=== PATIENT | female | born 1940 | race Hispanic/Latino ===

== ENCOUNTER 2017-09-04 19:28 | Inpatient (IN) | payer MEDICARE ==
[2017-09-04] MEDS ORDERED: Albuterol-Ipratrop 3 mg / 0.5 (3 ml) UD INH STA (22:55)
[2017-09-04 23:02] LABS: BASO % 0.5 % (0.0-2.0); EOS % 0.1 % (0.0-4.0); HEMOGLOBIN 14.6 g/dL (11.0-16.0); LYMPH # 0.3 K/uL (1.0-4.3); LYMPH % 3.8 % (20.0-40.0); MEAN CORPUSCULAR HEMOGLOBIN 32.5 pg (27.0-31.0); MEAN CORPUSCULAR HGB CONC 34.2 g/dL (33.0-37.0); MEAN PLATELET VOLUME 8.8 fL (7.2-11.7); MONO # 0.9 K/uL (0.0-0.8); MONO % 10.2 % (0.0-10.0); NEUT # 7.3 K/uL (1.8-7.0); NEUT % 85.4 % (50.0-75.0); PLATELET COUNT 184 K/uL (130-400); RBC 4.49 Mil/uL (3.80-5.20); RED CELL DISTRIBUTION WIDTH 13.3 % (11.5-14.5); WHITE BLOOD COUNT 8.5 K/uL (4.8-10.8)
[2017-09-04 23:12] LABS: ALB/GLOB RATIO 1.2 (1.0-2.1); ALBUMIN 4.1 g/dL (3.5-5.0); ALT/SGPT 23 U/L (9-52); AST/SGOT 18 U/L (14-36); BLOOD UREA NITROGEN 13 mg/dL (7-17); CALCIUM 8.7 mg/dl (8.6-10.4); GFR AFRICAN-AMERICAN > 60; GFR NON-AFRICAN AMERICAN > 60; MAGNESIUM 1.6 mg/dL (1.6-2.3)
[2017-09-04 23:16] LABS: INR 3.2
--- NOTE | 2017-09-04 23:20 | C.PDOC ---
History Of Present Illness 77 year old female presents to ED with complaints of flu-like symptoms x1 day and has a past medical history of asthma, hemicolectomy status post colon cancer , and PE status post IVC filter. (+) cough, fever, congestion, and malaise. Confirms receiving flu vaccination this flu season. Patient denies history of smoking. PCP: Non [facility] Time Seen by Provider: 09/04/17 22:03 Chief Complaint (Nursing): Chest Pain History Per: Patient History/Exam Limitations: no limitations Onset/Duration Of Symptoms: Days (X1) Current Symptoms Are (Timing): Still Present Past Medical History Reviewed: Historical Data, Nursing Documentation, Vital Signs Vital Signs: Last Vital Signs Temp 98.6 F 09/05/17 06:08 Pulse 53 L 09/05/17 06:08 Resp 17 09/05/17 06:08 BP 138/62 09/05/17 06:08 Pulse Ox 94 L 09/05/17 06:08 - Medical History PMH: Arthritis, Asthma, Back Problems ([id number]), Bronchitis, CHF, COPD , Diverticulitis (polyp removed), HTN, Pancreatitis (2007), Pneumonia, Pulmonary Embolism Denies: Atrial Fibrillation, Chronic Kidney Disease Family History: States: Unknown Family Hx - Social History Hx Tobacco Use: No Hx Alcohol Use: No Hx Substance Use: No - Immunization History Hx Tetanus Toxoid Vaccination: No Hx Influenza Vaccination: Yes Hx Pneumococcal Vaccination: No Review Of Systems Except As Marked, All Systems Reviewed And Found Negative. Constitutional: Positive for: Fever, Malaise ENT: Positive for: Nose Congestion Respiratory: Positive for: Cough Physical Exam - Physical Exam Appears: No Acute Distress Skin: Normal Color, Warm, Dry Eye(s): bilateral: Normal Inspection, PERRL, EOMI Neck: Normal Cardiovascular: Rhythm Regular, No Murmur Respiratory: No Normal Breath Sounds, Rhonchi (coarse rhonchi throughout lungs) , Other ((+) cough, productive of green sputum. Hypoxic at 93 RA) Back: Normal Inspection Extremity: Normal ROM, No Deformity Neurological/Psych: Oriented x3, Normal Speech ED Course And Treatment - Laboratory Results Result Diagrams: 09/04/17 22:57 09/04/17 22:57 O2 Sat by Pulse Oximetry: 93 (RA) Pulse Ox Interpretation: Abnormal Medical Decision Making Medical Decision Makin Initial orders: * PNA work up * Assess flu * Duonebs * XR * Labs 0005 Labs reviewed: Patient is flu A positive. White count: 8.5 INR: slightly therapeutic at 3.2 Gas: * pH 7.44 * CO2 34 * pO2 61 (hypoxic) * Sodium 131 (hyponatremic) Labs otherwise unremarkable. Rectal temp: 103 degrees. O2, fluids, and Tylenol ordered. 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 Dr. Kraig Ordonez [id number] Dr. Ordonez paged again. Scribe Attestation: Documented by Julieta Stockotn acting as a scribe for Pedro Chun MD. Scribe Attestation: All medical record entries made by the Scribe were at my direction and personally dictated by me. I have reviewed the chart and agree that the record accurately reflects my personal performance of the history, physical exam, medical decision making, and the department course for this patient. I have also personally directed, reviewed, and agree with the discharge instructions and disposition. Disposition Counseled Patient/Family Regarding: Diagnosis - Disposition Disposition: HOSPITALIZED Disposition Time: 07:09 Condition: FAIR - Clinical Impression Clinical Impression: Influenza A, COPD with exacerbation
[2017-09-04 23:21] LABS: PROTHROMBIN TIME 37.7 SECONDS (9.7-12.2)
[2017-09-04 23:21] LABS: SQUAMOUS EPITHIAL 1 /hpf (0-5); URINE BACTERIA RARE (<OCC); URINE BILIRUBIN NEGATIVE (NEGATIVE); URINE BLOOD 3+ (NEGATIVE); URINE CLARITY Clear (Clear); URINE COLOR Yellow (YELLOW); URINE GLUCOSE (UA) NORMAL (Normal); URINE LEUKOCYTE ESTERASE NEG Leu/uL (Negative); URINE NITRATE NEGATIVE (NEGATIVE); URINE PROTEIN 2+ mg/dL (NEGATIVE); URINE UROBILINOGEN NORMAL mg/dL (0.2-1.0)
[2017-09-04 23:24] LABS: B-TYPE NATRIURETIC PEPTIDE 611 pg/mL (0-900)
[2017-09-04 23:29] LABS: LYMPHOCYTE 1 % (20-40); MONOCYTE 4 % (0-10); NEUTROPHIL 95 % (50-75); PLATELET ESTIMATE NORMAL (NORMAL); TOTAL CELLS COUNTED 100
[2017-09-04] MEDS ORDERED: Albuterol-Ipratrop 3 mg / 0.5 (3 ml) UD ONE (23:29)
[2017-09-04 23:39] LABS: ABG ALLEN TEST POS; ARTERIAL BLOOD GAS HCO3 24.5 mmol/L (21-28); ARTERIAL BLOOD GAS HEMOGLOBIN 14.6 g/dL (11.7-17.4); ARTERIAL BLOOD GAS O2 SAT 94.1 % (95-98); ARTERIAL BLOOD GAS PCO2 34 mm/Hg (35-45); ARTERIAL BLOOD GAS PH 7.44 (7.35-7.45); ARTERIAL BLOOD GAS PO2 61 mm/Hg (80-100); ARTERIAL BLOOD GAS TCO2 24.1 mmol/L (22-28)
--- NOTE | 2017-09-05 08:41 | RAD ---
Chest x-ray two views History: Shortness breath. Comparison: None available. Findings: Biapical pleural thickening with upper lobe granulomatous changes. Diffuse increased interstitial lung markings. Heart size within normal limits. Degenerative changes in the spine. Impression: Biapical pleural thickening with upper lobe granulomatous changes. Diffuse increased interstitial lung markings.
[2017-09-05] MEDS ORDERED: Albuterol 0.083% Inhal Sol (2.5 mg/3 mL) UD IH PRN (16:29)
[2017-09-05] MEDS: Sodium Chloride 0.9% 1,000 ML IV SCH (16:50)
--- NOTE | 2017-09-05 16:52 | CP.PCM.HP ---
History of Present Illness - History of Present Illness History of Present Illness: HPI: Patient is a 77 year old female with a past medical history of asthma, Afib , HTN, DM, antiphospholipid syndrome, PE w/IVC filter, who presents with weakness, fevers, and coughing. Patient reports the coughing started on Monday and occasionally produces yellow sputum. Weakness in the legs and fever began yesterday, for which she called out of work sick. Patient was then brought into the ED by her daughter, Luly, who is at bedside. Patient took Tylenol, which helped her symptoms slightly. Patient currently complains of fever, chills, weakness, parasternal and midline back pain when coughing, Patient denies dizziness, shortness of breath, abdominal pain, nausea, vomiting, diarrhea, constipation, and dysuria. PMD: none Can Dryer: Dr. 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 absent: Dyspnea - Respiratory Respiratory: Cough, Wheezing, Change in Mucous Color (yellow), Pain with Coughing - Gastrointestinal Gastrointestinal: absent: Abdominal Pain, Constipation, Diarrhea, Nausea, Vomiting - Genitourinary Genitourinary: absent: Dysuria, Hematuria, Urinary Frequency - Musculoskeletal Musculoskeletal: Back Pain (right sided, with coughing) - Integumentary Integumentary: absent: Rash - Neurological Neurological: Headaches. absent: Dizziness Past Patient History - Past Medical History & Family History Past Medical History?: Yes - Past Social History Smoking Status: Never Smoked - CARDIAC Hx Atrial Fibrillation: No Hx Congestive Heart Failure: Yes Hx Hypertension: Yes - PULMONARY Hx Asthma: Yes Hx Bronchitis: Yes Hx Chronic Obstructive Pulmonary Disease (COPD): Yes Hx Pneumonia: Yes Hx Pulmonary Embolism: Yes - NEUROLOGICAL Hx Neurological Disorder: No Other/Comment: 1979 infection in the head - HEENT Hx HEENT Problems: Yes Hx Macular Degeneration: Yes Other/Comment: wear eyeglasses, sinus operation 1981 - RENAL Hx Chronic Kidney Disease: No - ENDOCRINE/METABOLIC Hx Endocrine Disorders: Yes Hx Diabetes Mellitus Type 2: Yes - HEMATOLOGICAL/ONCOLOGICAL Hx Blood Disorders: Yes - INTEGUMENTARY Hx Dermatological Problems: Yes Other/Comment: Dry skin elbow, on and off rash especially when feeling hot - MUSCULOSKELETAL/RHEUMATOLOGICAL Hx Arthritis: Yes - GASTROINTESTINAL Hx Diverticulitis: Yes (polyp removed) Hx Pancreatitis: Yes (2007) - GENITOURINARY/GYNECOLOGICAL Hx Genitourinary Disorders: Yes Hx Urinary Tract Infection: Yes - PSYCHIATRIC Hx Substance Use: No - SURGICAL HISTORY Hx Surgeries: Yes Hx Hysterectomy: Yes (1975,partial hysterectomy) Other/Comment: polyp removal ,vascular surgery 1983,1991 calcification remove of right breast,1993 bladder tuck,1994 operation left ft.,1999 knee surgery repair,2000hernia repair,2002 implant yenny cava filter,2004 surgery on rt. foot ,2006 vein stripping - ANESTHESIA Hx Anesthesia: Yes Hx Anesthesia Reactions: No Hx Malignant Hyperthermia: No Meds Allergies/Adverse Reactions: Allergies Allergy/AdvReac Type Severity Reaction Status Date / Time alatrofloxacin mesylate Allergy RASH Verified 09/05/17 11:27 [From Trovan] cefuroxime Allergy RASH Verified 09/05/17 11:27 lidocaine Allergy RASH Verified 09/05/17 11:27 linezolid [From Zyvox] Allergy RASH Verified 09/05/17 11:27 penicillin G Allergy RASH Verified 09/05/17 11:27 sulfamethoxazole Allergy RASH Verified 09/05/17 11:27 [From Bactrim] trimethoprim [From Bactrim] Allergy RASH Verified 09/05/17 11:27 trovafloxacin mesylate Allergy RASH Verified 09/05/17 11:27 [From Trovan] vancomycin Allergy RASH Verified 09/05/17 11:27 codeine AdvReac NAUSEA Verified 09/05/17 11:27 ofloxacin [From Floxin] AdvReac FATIGUE Verified 09/05/17 11:27 CT scan dye Allergy RASH Uncoded 10/21/15 01:48 ultravet Allergy DIZZINESS Uncoded 10/21/15 01:47 Physical Exam - Constitutional Appears: No Acute Distress - Head Exam Head Exam: ATRAUMATIC, NORMOCEPHALIC - Eye Exam Eye Exam: EOMI, Normal appearance, PERRL - ENT Exam ENT Exam: Mucous Membranes Moist - Respiratory Exam Respiratory Exam: Prolonged Expiratory Phase, Wheezes, NORMAL BREATHING PATTERN. absent: Clear to Auscultation Bilateral, Respiratory Distress - Cardiovascular Exam Cardiovascular Exam: Irregular Rhythm, +S1, +S2 - GI/Abdominal Exam GI & Abdominal Exam: Normal Bowel Sounds, Soft. absent: Distended, Firm, Tenderness - Extremities Exam Extremities exam: Negative for: normal inspection (variscosites; chronic skin changes 2/2 venous stasis), tenderness - Neurological Exam Neurological exam: Alert, Oriented x3 - Psychiatric Exam Psychiatric exam: Normal Affect, Normal Mood - Skin Skin Exam: Dry, Intact, Warm Results - Vital Signs Recent Vital Signs: Last Vital Signs Temp 99.6 F 09/05/17 16:32 Pulse 62 09/05/17 16:32 Resp 20 09/05/17 16:32 BP 147/66 09/05/17 16:32 Pulse Ox 97 09/05/17 16:32 - Labs Result Diagrams: 09/04/17 22:57 09/04/17 22:57 Labs: Laboratory Results - last 24 hr 09/04/17 09/04/17 09/04/17 22:54 22:57 22:57 WBC 8.5 RBC 4.49 Hgb 14.6 Hct 42.7 MCV 95.0 D MCH 32.5 H MCHC 34.2 RDW 13.3 Plt Count 184 MPV 8.8 Neut % (Auto) 85.4 H Lymph % (Auto) 3.8 L Winkler % (Auto) 10.2 H Eos % (Auto) 0.1 Baso % (Auto) 0.5 Neut # 7.3 H Lymph # 0.3 L Winkler # 0.9 H Eos # 0.0 Baso # 0.0 Neutrophils % (Manual) 95 H Lymphocytes % (Manual) 1 L Monocytes % (Manual) 4 Platelet Estimate Normal PT 37.7 H* INR 3.2 APTT 48 H Puncture Site pCO2 pO2 HCO3 ABG pH ABG Total CO2 ABG O2 Saturation ABG Base Excess ABG Hemoglobin ABG Carboxyhemoglobin POC ABG HHb (Measured) ABG Methemoglobin Rios Test Hgb O2 Saturation Sodium Potassium Chloride Carbon Dioxide Anion Gap BUN Creatinine Est GFR ( Amer) Est GFR (Non-Af Amer) POC Glucose (mg/dL) Random Glucose Calcium Magnesium Total Bilirubin AST ALT Alkaline Phosphatase Troponin I NT-Pro-B Natriuret Pep Total Protein Albumin Globulin Albumin/Globulin Ratio Urine Color Urine Clarity Urine pH Ur Specific Newell Urine Protein Urine Glucose (UA) Urine Ketones Urine Blood Urine Nitrate Urine Bilirubin Urine Urobilinogen Ur Leukocyte Esterase Urine WBC (Auto) Urine RBC (Auto) Ur Squamous Epith Cells Urine Bacteria Influenza Typ A,B (EIA) Pos for influenza a H 09/04/17 09/04/17 09/04/17 22:57 23:15 23:34 WBC RBC Hgb Hct MCV MCH MCHC RDW Plt Count MPV Neut % (Auto) Lymph % (Auto) Winkler % (Auto) Eos % (Auto) Baso % (Auto) Neut # Lymph # Winkler # Eos # Baso # Neutrophils % (Manual) Lymphocytes % (Manual) Monocytes % (Manual) Platelet Estimate PT INR APTT Puncture Site Rr pCO2 34 L pO2 61 L HCO3 24.5 ABG pH 7.44 ABG Total CO2 24.1 ABG O2 Saturation 94.1 L ABG Base Excess -0.4 ABG Hemoglobin 14.6 ABG Carboxyhemoglobin 1.0 POC ABG HHb (Measured) 5.8 H ABG Methemoglobin 0.9 Rios Test Pos Hgb O2 Saturation 92.3 L Sodium 131 L Potassium 3.6 Chloride 97 L Carbon Dioxide 26 Anion Gap 12 BUN 13 Creatinine 0.9 Est GFR ( Amer) > 60 Est GFR (Non-Af Amer) > 60 POC Glucose (mg/dL) Random Glucose 120 H Calcium 8.7 Magnesium 1.6 Total Bilirubin 0.6 AST 18 ALT 23 Alkaline Phosphatase 61 Troponin I 0.0180 NT-Pro-B Natriuret Pep 611 Total Protein 7.3 Albumin 4.1 Globulin 3.2 Albumin/Globulin Ratio 1.2 Urine Color Yellow Urine Clarity Clear Urine pH 5.0 Ur Specific Newell 1.020 Urine Protein 2+ H Urine Glucose (UA) Normal Urine Ketones Negative Urine Blood 3+ H Urine Nitrate Negative Urine Bilirubin Negative Urine Urobilinogen Normal Ur Leukocyte Esterase Neg Urine WBC (Auto) 1 Urine RBC (Auto) 24 H Ur Squamous Epith Cells 1 Urine Bacteria Rare Influenza Typ A,B (EIA) 09/05/17 16:33 WBC RBC Hgb Hct MCV MCH MCHC RDW Plt Count MPV Neut % (Auto) Lymph % (Auto) Winkler % (Auto) Eos % (Auto) Baso % (Auto) Neut # Lymph # Winkler # Eos # Baso # Neutrophils % (Manual) Lymphocytes % (Manual) Monocytes % (Manual) Platelet Estimate PT INR APTT Puncture Site pCO2 pO2 HCO3 ABG pH ABG Total CO2 ABG O2 Saturation ABG Base Excess ABG Hemoglobin ABG Carboxyhemoglobin POC ABG HHb (Measured) ABG Methemoglobin Rios Test Hgb O2 Saturation Sodium Potassium Chloride Carbon Dioxide Anion Gap BUN Creatinine Est GFR ( Amer) Est GFR (Non-Af Amer) POC Glucose (mg/dL) 136 H Random Glucose Calcium Magnesium Total Bilirubin AST ALT Alkaline Phosphatase Troponin I NT-Pro-B Natriuret Pep Total Protein Albumin Globulin Albumin/Globulin Ratio Urine Color Urine Clarity Urine pH Ur Specific Newell Urine Protein Urine Glucose (UA) Urine Ketones Urine Blood Urine Nitrate Urine Bilirubin Urine Urobilinogen Ur Leukocyte Esterase Urine WBC (Auto) Urine RBC (Auto) Ur Squamous Epith Cells Urine Bacteria Influenza Typ A,B (EIA) Assessment & Plan (1) Influenza A Assessment and Plan: Influenza A: positive * CXR: biapical pleural thickening w/upper lobar granulomatous changes; diffuse increased interstitial lung markings. * Pulmonology consulted, Dr. Ordonez recs appreciated (Patient sees as outpatient) * Medications: * Tamiflu 75mg PO BID for total of 5 days (started 09/05/17) * Duonebs Q6sch * O2 via nasal cannula prn * IV Fluids * Tylenol prn for fever * Droplet precautions Status: Acute (2) Asthma Assessment and Plan: History of asthma; Uses inhalers and duonebs at home prn. Patient sees Dr. Ordonez as outpatient. * CXR: biapical pleural thickening w/upper lobar granulomatous changes; diffuse increased interstitial lung markings. * Pulmonology consulted, Dr. Ordonez, recs appreciated (Patient sees as outpatient) * Duonebs Q6 rashaad * O2 via nasal cannula prn * Restart home medications Status: Acute (3) A-fib Assessment and Plan: History of A fib * EKG: nsr * Continue home medications- Cardizem 120mg PO daily * Rate controlled * Monitor on telemetry Status: Acute (4) HTN (hypertension) Assessment and Plan: Continue home medications Monitor vitals Status: Acute (5) Diabetes mellitus Assessment and Plan: Continue home medications ISS Hypoglycemia protocol Monitor blood glucose, Accuchecks Status: Chronic (6) Hx pulmonary embolism Assessment and Plan: Patient has a history of PE, DVT, and antiphospholipid syndrome. * Continue home medication- Coumadin 4mg PO HS (place order daily) * Monitor INR daily Status: Acute (7) Prophylactic measure Assessment and Plan: GI: pepcid 20mg po daily DVT: no SCDs; patient on Coumadin 4mg PO HS Heart healthy diet Droplet precautions Status: Acute
[2017-09-05] MEDS: diltiaZEM 120 mg/24 Hours CD Cap PO SCH (17:41)
[2017-09-05 19:08] LABS: INR 2.2; PROTHROMBIN TIME 25.9 SECONDS (9.7-12.2)
[2017-09-05] MEDS: (Novolin R) Insulin Human Regular 100 units/ml vial SC SCH (21:59)
--- NOTE | 2017-09-05 23:06 | CARD ---
APPROVED REPORT EKG Measurement Heart [id number] <Conclusion> Normal sinus rhythm Left anterior fascicular block Moderate voltage criteria for LVH, may be normal variant Abnormal ECG
[2017-09-06] MEDS: Albuterol-Ipratrop 3 mg / 0.5 (3 ml) UD INH SCH ×4 (00:01→21:21)
[2017-09-06] MEDS: Sodium Chloride 0.9% 1,000 ML IV SCH ×2 (05:32→22:56)
[2017-09-06] MEDS: Mometasone 220 mcg/puff-14 puff Inh INH SCH ×2 (07:18→21:20)
[2017-09-06] MEDS: (Novolin R) Insulin Human Regular 100 units/ml vial SC SCH ×4 (07:33→21:24)
--- NOTE | 2017-09-06 07:35 | CP.PCM.PN ---
<Estee Lang - Last Filed: 09/06/17 17:48> Subjective - Date & Time of Evaluation Date of Evaluation: 09/06/17 Time of Evaluation: 07:35 - Subjective Subjective: Medicine progress note for Dr. Johnson's service Patient was seen and examined at bedside in no acute distress. Patient was sitting having breakfast. Patient complains of cough productive of yellow sputum and chest/back pain with coughing. Patient denies chest pain, abdominal pain, nausea, fevers, and vomiting. Objective - Vital Signs/Intake and Output Vital Signs (last 24 hours): Temp Pulse Resp BP Pulse Ox 98.7 F 67 20 149/73 95 09/06/17 00:00 09/06/17 01:00 09/06/17 00:00 09/06/17 00:00 09/06/17 00:00 - Medications Medications: Current Medications Acetaminophen (Tylenol 325mg Tab) 650 mg PO Q6 PRN PRN Reason: Fever >100.4 F Last Admin: 09/06/17 06:40 Dose: 650 mg Albuterol Sulfate (Albuterol 0.083% Inhal Cristina (2.5 Mg/3 Ml) Ud) 2.5 mg IH RQ6 PRN PRN Reason: Shortness of Breath Albuterol/Ipratropium (Duoneb 3 Mg/0.5 Mg (3 Ml) Ud) 3 ml INH RQ6 RASHAAD Last Admin: 09/06/17 07:18 Dose: Not Given Calcium/Vitamin D (Oyster Shell Calcium/Vitamin D 500 Mg-200 Iu) 1 tab PO DAILY [facility] Diltiazem HCl (Cardizem Cd) 120 mg PO DAILY [facility] Last Admin: 09/05/17 17:41 Dose: Not Given Ergocalciferol (Drisdol 50,000 Intl Units Cap) 1 cap PO QWK [facility] Famotidine (Pepcid) 20 mg PO DAILY [facility] Glipizide (Glucotrol) 10 mg PO BID [facility] Last Admin: 09/05/17 17:43 Dose: 10 mg Sodium Chloride (Sodium Chloride 0.9%) 1,000 mls @ 75 mls/hr IV .[id number] [facility] Last Admin: 09/06/17 05:32 Dose: 75 mls/hr Insulin Human Regular (Novolin R) 0 unit SC ACHS RASHAAD PRN Reason: Protocol Last Admin: 09/06/17 07:33 Dose: Not Given Mometasone Furoate (Asmanex Twisthaler 220 Mcg) 2 puff INH RBID [facility] Last Admin: 09/06/17 07:18 Dose: Not Given Montelukast Sodium (Singulair) 10 mg PO HS [facility] Last Admin: 09/05/17 22:02 Dose: 10 mg Oseltamivir Phosphate (Tamiflu Cap) 75 mg PO BID [facility] Stop: 09/10/17 01:56 Last Admin: 09/05/17 17:43 Dose: 75 mg Pneumococcal Polyvalent Vaccine (Pneumovax 23 Vaccine) 0.5 ml IM .ONCE ONE Stop: 09/08/17 10:01 Sitagliptin Phosphate (Januvia) 100 mg PO DAILY [facility] [place] Last Admin: 09/05/17 17:44 Dose: Not Given - Labs Labs: 09/04/17 22:57 09/04/17 22:57 PT 25.9 SECONDS (9.7-12.2) H D 09/05/17 18:42 INR 2.2 D 09/05/17 18:42 APTT 43 SECONDS (21-34) H D 09/05/17 18:42 - Additional Findings Additional findings: - Constitutional Appears: No Acute Distress - Head Exam Head Exam: ATRAUMATIC, NORMOCEPHALIC - Eye Exam Eye Exam: EOMI, Normal appearance, PERRL - ENT Exam ENT Exam: Mucous Membranes Moist - Respiratory Exam Respiratory Exam: Prolonged Expiratory Phase, Wheezes, NORMAL BREATHING PATTERN , Productive cough (yellow sputum). absent: Clear to Auscultation Bilateral, Respiratory Distress - Cardiovascular Exam Cardiovascular Exam: Irregular Rhythm, +S1, +S2 - GI/Abdominal Exam GI & Abdominal Exam: Normal Bowel Sounds, Soft. absent: Distended, Firm, Tenderness - Extremities Exam Extremities exam: Negative for: normal inspection (variscosites; chronic skin changes 2/2 venous stasis), tenderness - Neurological Exam Neurological exam: Alert, Oriented x3 - Psychiatric Exam Psychiatric exam: Normal Affect, Normal Mood - Skin Skin Exam: Dry, Intact, Warm Assessment and Plan (1) Influenza A Status: Acute (2) Asthma Status: Acute (3) A-fib Status: Acute (4) HTN (hypertension) Status: Acute (5) Diabetes mellitus Status: Chronic (6) Hx pulmonary embolism Status: Acute (7) Prophylactic measure Status: Acute - Assessment and Plan (Free Text) Plan: Assessment & Plan (1) Influenza A Assessment and Plan: Influenza A: positive * CXR: biapical pleural thickening w/upper lobar granulomatous changes; diffuse increased interstitial lung markings. * Pulmonology consulted, lola Marshall appreciated (Patient sees as outpatient) * Medications: * Tamiflu 75mg PO BID for total of 5 days (started 09/05/17) * Duonebs Q6sch * O2 via nasal cannula prn * IV Fluids * Tylenol prn for fever * Droplet precautions * *Repeat chest xray: f/u results * Sputum cx: f/u results (2) Asthma Assessment and Plan: History of asthma; Uses inhalers and duonebs at home prn. Patient sees Dr. Ordonez as outpatient. * CXR: biapical pleural thickening w/upper lobar granulomatous changes; diffuse increased interstitial lung markings. * Pulmonology consulted, lola Marshall appreciated (Patient sees as outpatient) * Duonebs Q6 rashaad * O2 via nasal cannula prn * Restart home medications (3) A-fib Assessment and Plan: History of A fib * EKG: nsr * Continue home medications- Cardizem 120mg PO daily * Rate controlled * Monitor on telemetry (4) HTN (hypertension) Assessment and Plan: Continue home medications Monitor vitals (5) Diabetes mellitus Assessment and Plan: Continue home medications ISS Hypoglycemia protocol Monitor blood glucose, Accuchecks (6) Hx pulmonary embolism Assessment and Plan: Patient has a history of PE, DVT, and antiphospholipid syndrome. * Continue home medication- Coumadin 4mg PO HS (place order daily) * Monitor INR daily (7) Prophylactic measure Assessment and Plan: GI: pepcid 20mg po daily DVT: no SCDs; patient on Coumadin 4mg PO HS Heart healthy diet Droplet precautions <Harry Johnson Jr. - Last Filed: 09/07/17 19:31> Objective - Vital Signs/Intake and Output Vital Signs (last 24 hours): Temp Pulse Resp BP Pulse Ox 97.7 F 54 L 20 163/79 H 96 09/07/17 16:31 09/07/17 16:31 09/07/17 16:31 09/07/17 16:31 09/07/17 16:31 Intake and Output: 09/07/17 09/08/17 18:59 06:59 Intake Total 775 Balance 775 - Medications Medications: Current Medications Acetaminophen (Tylenol 325mg Tab) 650 mg PO Q6 PRN PRN Reason: Fever >100.4 F Last Admin: 09/07/17 14:11 Dose: 650 mg Albuterol Sulfate (Albuterol 0.083% Inhal Cristina (2.5 Mg/3 Ml) Ud) 2.5 mg IH RQ6 PRN PRN Reason: Shortness of Breath Albuterol/Ipratropium (Duoneb 3 Mg/0.5 Mg (3 Ml) Ud) 3 ml INH RQ6 RASHAAD Last Admin: 09/07/17 01:14 Dose: Not Given Calcium/Vitamin D (Oyster Shell Calcium/Vitamin D 500 Mg-200 Iu) 1 tab PO DAILY [facility] Last Admin: 09/07/17 10:22 Dose: 1 tab Diltiazem HCl (Cardizem Cd) 120 mg PO DAILY [facility] Last Admin: 09/07/17 10:22 Dose: 120 mg Ergocalciferol (Drisdol 50,000 Intl Units Cap) 1 cap PO QWK [facility] Last Admin: 09/06/17 10:05 Dose: 1 cap Famotidine (Pepcid) 20 mg PO DAILY [facility] Last Admin: 09/07/17 10:22 Dose: 20 mg Glipizide (Glucotrol) 10 mg PO BID [facility] Last Admin: 09/07/17 18:25 Dose: 10 mg Sodium Chloride (Sodium Chloride 0.9%) 1,000 mls @ 75 mls/hr IV .[id number] [facility] Last Admin: 09/07/17 08:30 Dose: Not Given Insulin Human Regular (Novolin R) 0 unit SC ACHS RASHAAD PRN Reason: Protocol Last Admin: 09/07/17 17:05 Dose: Not Given Mometasone Furoate (Asmanex Twisthaler 220 Mcg) 2 puff INH RBID [facility] Last Admin: 09/06/17 21:20 Dose: Not Given Montelukast Sodium (Singulair) 10 mg PO HS [facility] Last Admin: 09/06/17 21:40 Dose: 10 mg Oseltamivir Phosphate (Tamiflu Cap) 75 mg PO BID [facility] Stop: 09/10/17 01:56 Last Admin: 09/07/17 18:26 Dose: 75 mg Pneumococcal Polyvalent Vaccine (Pneumovax 23 Vaccine) 0.5 ml IM .ONCE ONE Stop: 09/08/17 10:01 Sitagliptin Phosphate (Januvia) 100 mg PO DAILY [facility] Last Admin: 09/07/17 10:30 Dose: Not Given - Labs Labs: 09/07/17 08:47 09/07/17 08:47 PT 21.5 SECONDS (9.7-12.2) H 09/07/17 08:47 INR 1.8 09/07/17 08:47 APTT 41 SECONDS (21-34) H 09/07/17 08:47 Attending/Attestation - Attestation I have personally seen and examined this patient.: Yes I have fully participated in the care of the patient.: Yes I have reviewed all pertinent clinical information, including history, physical exam and plan: Yes Notes (Text): 09/07/17 19:31 Agree with resident note and plan of care
[2017-09-06 08:23] LABS: INR 1.9; PROTHROMBIN TIME 22.4 SECONDS (9.7-12.2)
[2017-09-06 08:24] LABS: BASO % 0.8 % (0.0-2.0); EOS % 0.8 % (0.0-4.0); HEMOGLOBIN 13.3 g/dL (11.0-16.0); LYMPH # 0.9 K/uL (1.0-4.3); LYMPH % 27.5 % (20.0-40.0); MEAN CELL VOLUME 94.9 fL (81.0-99.0); MEAN CORPUSCULAR HEMOGLOBIN 32.5 pg (27.0-31.0); MEAN CORPUSCULAR HGB CONC 34.2 g/dL (33.0-37.0); MEAN PLATELET VOLUME 8.8 fL (7.2-11.7); MONO # 0.6 K/uL (0.0-0.8); MONO % 18.2 % (0.0-10.0); NEUT # 1.7 K/uL (1.8-7.0); NEUT % 52.7 % (50.0-75.0); NRBC % 0.3 % (0.0-2.0); RBC 4.11 Mil/uL (3.80-5.20); RED CELL DISTRIBUTION WIDTH 13.4 % (11.5-14.5); WHITE BLOOD COUNT 3.2 K/uL (4.8-10.8)
[2017-09-06 08:38] LABS: ALB/GLOB RATIO 1.2 (1.0-2.1); ALBUMIN 3.2 g/dL (3.5-5.0); ALT/SGPT 23 U/L (9-52); AST/SGOT 20 U/L (14-36); BLOOD UREA NITROGEN 14 mg/dL (7-17); CALCIUM 7.9 mg/dl (8.6-10.4); GFR AFRICAN-AMERICAN > 60; GFR NON-AFRICAN AMERICAN > 60
[2017-09-06] MEDS ORDERED: Ergocalciferol 50,000 Intl Units Cap PO SCH (10:00)
[2017-09-06] MEDS: diltiaZEM 120 mg/24 Hours CD Cap PO SCH (10:04)
[2017-09-06] MEDS: Calcium-Vit D 500 mg-200 Units Tab UD PO SCH (10:05)
[2017-09-07] MEDS: Albuterol-Ipratrop 3 mg / 0.5 (3 ml) UD INH SCH ×2 (01:14→20:45)
--- NOTE | 2017-09-07 06:57 | CP.PCM.PN ---
<Estee Lang - Last Filed: 09/07/17 18:17> Subjective - Date & Time of Evaluation Date of Evaluation: 09/07/17 Time of Evaluation: 06:55 - Subjective Subjective: Medicine progress note for Dr. Johnson's service Patient was seen and examined at bedside in no acute distress. Patient was sleeping. Patient still complains of cough productive of yellow sputum and chest /back pain with coughing. Patient also complains of soreness in her abdomen and legs. Patient denies chest pain, abdominal pain, nausea, fevers, and vomiting. Objective - Vital Signs/Intake and Output Vital Signs (last 24 hours): Temp Pulse Resp BP Pulse Ox 97.6 F 62 20 139/67 94 L 09/06/17 23:15 09/06/17 23:15 09/06/17 23:15 09/06/17 23:15 09/06/17 23:15 Intake and Output: 09/06/17 09/07/17 18:59 06:59 Intake Total 1500 600 Balance 1500 600 - Medications Medications: Current Medications Acetaminophen (Tylenol 325mg Tab) 650 mg PO Q6 PRN PRN Reason: Fever >100.4 F Last Admin: 09/06/17 18:37 Dose: 650 mg Albuterol Sulfate (Albuterol 0.083% Inhal Cristina (2.5 Mg/3 Ml) Ud) 2.5 mg IH RQ6 PRN PRN Reason: Shortness of Breath Albuterol/Ipratropium (Duoneb 3 Mg/0.5 Mg (3 Ml) Ud) 3 ml INH RQ6 [facility] Last Admin: 09/07/17 01:14 Dose: Not Given Calcium/Vitamin D (Oyster Shell Calcium/Vitamin D 500 Mg-200 Iu) 1 tab PO DAILY [facility] Last Admin: 09/06/17 10:05 Dose: 1 tab Diltiazem HCl (Cardizem Cd) 120 mg PO DAILY [facility] Last Admin: 09/06/17 10:04 Dose: 120 mg Ergocalciferol (Drisdol 50,000 Intl Units Cap) 1 cap PO QWK [facility] Last Admin: 09/06/17 10:05 Dose: 1 cap Famotidine (Pepcid) 20 mg PO DAILY [facility] Last Admin: 09/06/17 10:05 Dose: 20 mg Glipizide (Glucotrol) 10 mg PO BID [facility] Last Admin: 09/06/17 17:30 Dose: 10 mg Sodium Chloride (Sodium Chloride 0.9%) 1,000 mls @ 75 mls/hr IV .[id number] [facility] Last Admin: 09/06/17 22:56 Dose: 75 mls/hr Insulin Human Regular (Novolin R) 0 unit SC ACHS [facility] PRN Reason: Protocol Last Admin: 09/06/17 21:24 Dose: Not Given Mometasone Furoate (Asmanex Twisthaler 220 Mcg) 2 puff INH RBID [facility] Last Admin: 09/06/17 21:20 Dose: Not Given Montelukast Sodium (Singulair) 10 mg PO HS [facility] Last Admin: 09/06/17 21:40 Dose: 10 mg Oseltamivir Phosphate (Tamiflu Cap) 75 mg PO BID [facility] Stop: 09/10/17 01:56 Last Admin: 09/06/17 17:30 Dose: 75 mg Pneumococcal Polyvalent Vaccine (Pneumovax 23 Vaccine) 0.5 ml IM .ONCE ONE Stop: 09/08/17 10:01 Sitagliptin Phosphate (Januvia) 100 mg PO DAILY [facility] Last Admin: 09/06/17 10:06 Dose: Not Given - Labs Labs: 09/06/17 08:08 09/06/17 08:08 PT 22.4 SECONDS (9.7-12.2) H 09/06/17 08:08 INR 1.9 09/06/17 08:08 APTT 40 SECONDS (21-34) H 09/06/17 08:08 - Additional Findings Additional findings: - Constitutional Appears: No Acute Distress - Head Exam Head Exam: ATRAUMATIC, NORMOCEPHALIC - Eye Exam Eye Exam: EOMI, Normal appearance, PERRL - ENT Exam ENT Exam: Mucous Membranes Moist - Respiratory Exam Respiratory Exam: Prolonged Expiratory Phase, Wheezes, NORMAL BREATHING PATTERN , Productive cough (yellow sputum). absent: Clear to Auscultation Bilateral, Respiratory Distress - Cardiovascular Exam Cardiovascular Exam: Irregular Rhythm, +S1, +S2 - GI/Abdominal Exam GI & Abdominal Exam: Normal Bowel Sounds, Soft. absent: Distended, Firm, Tenderness - Extremities Exam Extremities exam: Negative for: normal inspection (variscosites; chronic skin changes 2/2 venous stasis), tenderness - Neurological Exam Neurological exam: Alert, Oriented x3 - Psychiatric Exam Psychiatric exam: Normal Affect, Normal Mood - Skin Skin Exam: Dry, Intact, Warm Assessment and Plan (1) Influenza A Status: Acute (2) Asthma Status: Acute (3) A-fib Status: Acute (4) HTN (hypertension) Status: Acute (5) Diabetes mellitus Status: Chronic (6) Hx pulmonary embolism Status: Acute (7) Prophylactic measure Status: Acute - Assessment and Plan (Free Text) Plan: Assessment & Plan (1) Influenza A Assessment and Plan: Influenza A: positive * CXR: biapical pleural thickening w/upper lobar granulomatous changes; diffuse increased interstitial lung markings. * Pulmonology consulted, Dr. Bucio, rec appreciated * Dr. Ordonez was consulted and called but never reached. (Patient sees as outpatient) * Medications: * Tamiflu 75mg PO BID for total of 5 days (started 09/05/17) * Duonebs Q6sch * O2 via nasal cannula prn * IV Fluids * Tylenol prn for fever * Droplet precautions * *Repeat chest xray (09/06): no focal infiltrate or effusion * Sputum cx: f/u results (2) Asthma Assessment and Plan: History of asthma; Uses inhalers and duonebs at home prn. Patient sees Dr. Ordonez as outpatient. * CXR: biapical pleural thickening w/upper lobar granulomatous changes; diffuse increased interstitial lung markings. * Pulmonology consulted, Dr. Bucio, recs appreciated * Dr. Ordonez was consulted and called but never reached. (Patient sees as outpatient) * Duonebs Q6 rashaad * O2 via nasal cannula prn * Restart home medications (3) A-fib Assessment and Plan: History of A fib * EKG: nsr * Continue home medications- Cardizem 120mg PO daily * Rate controlled * Monitor on telemetry (4) HTN (hypertension) Assessment and Plan: Continue home medications Monitor vitals (5) Diabetes mellitus Assessment and Plan: Continue home medications ISS Hypoglycemia protocol Monitor blood glucose, Accuchecks (6) Hx pulmonary embolism Assessment and Plan: Patient has a history of PE, DVT, and antiphospholipid syndrome. * Continue home medication- Coumadin 4mg PO HS (place order daily) * Monitor INR daily (7) Prophylactic measure Assessment and Plan: GI: pepcid 20mg po daily DVT: no SCDs; patient on Coumadin 4mg PO HS Heart healthy diet Droplet precautions Discussed with Dr. Johnson <Harry Johnson Jr. - Last Filed: 09/07/17 19:35> Objective - Vital Signs/Intake and Output Vital Signs (last 24 hours): Temp Pulse Resp BP Pulse Ox 97.7 F 54 L 20 163/79 H 96 09/07/17 16:31 09/07/17 16:31 09/07/17 16:31 09/07/17 16:31 09/07/17 16:31 Intake and Output: 09/07/17 09/08/17 18:59 06:59 Intake Total 775 Balance 775 - Medications Medications: Current Medications Acetaminophen (Tylenol 325mg Tab) 650 mg PO Q6 PRN PRN Reason: Fever >100.4 F Last Admin: 09/07/17 14:11 Dose: 650 mg Albuterol Sulfate (Albuterol 0.083% Inhal Cristina (2.5 Mg/3 Ml) Ud) 2.5 mg IH RQ6 PRN PRN Reason: Shortness of Breath Albuterol/Ipratropium (Duoneb 3 Mg/0.5 Mg (3 Ml) Ud) 3 ml INH RQ6 [facility] Last Admin: 09/07/17 01:14 Dose: Not Given Calcium/Vitamin D (Oyster Shell Calcium/Vitamin D 500 Mg-200 Iu) 1 tab PO DAILY [facility] Last Admin: 09/07/17 10:22 Dose: 1 tab Diltiazem HCl (Cardizem Cd) 120 mg PO DAILY [facility] Last Admin: 09/07/17 10:22 Dose: 120 mg Ergocalciferol (Drisdol 50,000 Intl Units Cap) 1 cap PO QWK [facility] Last Admin: 09/06/17 10:05 Dose: 1 cap Famotidine (Pepcid) 20 mg PO DAILY [facility] Last Admin: 09/07/17 10:22 Dose: 20 mg Glipizide (Glucotrol) 10 mg PO BID [facility] Last Admin: 09/07/17 18:25 Dose: 10 mg Sodium Chloride (Sodium Chloride 0.9%) 1,000 mls @ 75 mls/hr IV .[id number] [facility] Last Admin: 09/07/17 08:30 Dose: Not Given Insulin Human Regular (Novolin R) 0 unit SC ACHS [facility] PRN Reason: Protocol Last Admin: 09/07/17 17:05 Dose: Not Given Mometasone Furoate (Asmanex Twisthaler 220 Mcg) 2 puff INH RBID [facility] Last Admin: 09/06/17 21:20 Dose: Not Given Montelukast Sodium (Singulair) 10 mg PO HS [facility] Last Admin: 09/06/17 21:40 Dose: 10 mg Oseltamivir Phosphate (Tamiflu Cap) 75 mg PO BID [facility] Stop: 09/10/17 01:56 Last Admin: 09/07/17 18:26 Dose: 75 mg Pneumococcal Polyvalent Vaccine (Pneumovax 23 Vaccine) 0.5 ml IM .ONCE ONE Stop: 09/08/17 10:01 Sitagliptin Phosphate (Januvia) 100 mg PO DAILY [facility] Last Admin: 09/07/17 10:30 Dose: Not Given - Labs Labs: 09/07/17 08:47 09/07/17 08:47 PT 21.5 SECONDS (9.7-12.2) H 09/07/17 08:47 INR 1.8 09/07/17 08:47 APTT 41 SECONDS (21-34) H 09/07/17 08:47 Attending/Attestation - Attestation I have personally seen and examined this patient.: Yes I have fully participated in the care of the patient.: Yes I have reviewed all pertinent clinical information, including history, physical exam and plan: Yes Notes (Text): 09/07/17 19:35 Agree with resident note and plan of care
[2017-09-07] MEDS: (Novolin R) Insulin Human Regular 100 units/ml vial SC SCH ×4 (07:53→21:48)
[2017-09-07] MEDS: Sodium Chloride 0.9% 1,000 ML IV SCH ×2 (08:30→21:42)
[2017-09-07 08:55] LABS: BASO % 0.9 % (0.0-2.0); EOS # 0.1 K/uL (0.0-0.7); EOS % 2.3 % (0.0-4.0); HEMOGLOBIN 14.5 g/dL (11.0-16.0); LYMPH # 0.9 K/uL (1.0-4.3); MEAN CELL VOLUME 93.4 fL (81.0-99.0); MEAN CORPUSCULAR HEMOGLOBIN 33.2 pg (27.0-31.0); MEAN CORPUSCULAR HGB CONC 35.5 g/dL (33.0-37.0); MEAN PLATELET VOLUME 8.2 fL (7.2-11.7); MONO # 0.4 K/uL (0.0-0.8); MONO % 11.4 % (0.0-10.0); NEUT # 1.8 K/uL (1.8-7.0); NEUT % 57.4 % (50.0-75.0); RBC 4.37 Mil/uL (3.80-5.20); RED CELL DISTRIBUTION WIDTH 13.5 % (11.5-14.5); WHITE BLOOD COUNT 3.1 K/uL (4.8-10.8)
[2017-09-07 09:02] LABS: INR 1.8; PROTHROMBIN TIME 21.5 SECONDS (9.7-12.2)
--- NOTE | 2017-09-07 09:21 | RAD ---
Chest x-ray two views History: Productive cough. Comparison: 09/01/2007 Findings No focal infiltrate or effusion. Biapical pleural thickening with upper lobe granulomatous changes. Tortuous aorta. Degenerative changes in the spine and shoulders. Impression : No focal infiltrate or effusion.
[2017-09-07 09:23] LABS: ALB/GLOB RATIO 1.2 (1.0-2.1); ALBUMIN 3.6 g/dL (3.5-5.0); ALT/SGPT 27 U/L (9-52); AST/SGOT 21 U/L (14-36); BLOOD UREA NITROGEN 12 mg/dL (7-17); CALCIUM 8.1 mg/dl (8.6-10.4); GFR AFRICAN-AMERICAN > 60; GFR NON-AFRICAN AMERICAN > 60
[2017-09-07] MEDS: Calcium-Vit D 500 mg-200 Units Tab UD PO SCH (10:22)
[2017-09-07] MEDS: diltiaZEM 120 mg/24 Hours CD Cap PO SCH (10:22)
--- NOTE | 2017-09-07 17:51 | CP.PCM.CON ---
History of Present Illness - History of Present Illness History of Present Illness: The patient is a 77 year old female w/ medical history of hypertension, diabetes mellitus, atrial fibrillation, asthma, antiphospholipid syndrome, and pulmonary embolism with IVC filter who presented with complaints of fever, weakness, and cough beginning on Monday. She states that cough is productive and describes the sputum as yellow. On Monday, she states that she began feeling feverish and weak in the legs resulting in her calling out from work. The patient's daughter, Luly, brought her into the ED yesterday. She states that Tylenol has helped control her fever somewhat.On review of systems, the patient admits to fever, chills, fatigue, weakness, cough, and sputum production. She denies chest pain, palpitations, peripheral edema, shortness of beath, dyspnea, pleuritic chest pain, and hemoptysis. Social history: The patient denies smoking, alcohol, and illicit substance abuse. She currently resides in [place]. 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 Medical history: - Hypertension - Diabetes mellitus - Atrial fibrillation - Asthma - Antiphospholipid syndrome - Pulmonary embolism with IVC filter Allergies: - Alatrofloxacin mesylate - rash - Cefuroxime - rash - Lidocaine - rash - Linezolid - rash - Penicilin G - rash - sulfamethoxazole/trimethoprim (Bactrim) - rash - Vancomycin - rash - Codeine - nausea - Ofloxacin - fatigue - CT scan dye - rash - Ultravet - dizziness Surgical history: - Partial hysterectomy 1975 - Hemicolectomy - Polyp removal - Vascular surgery in 1983 - Removal of right breast 1991 - Bladder tuck 1993 - Left foot surgery 1994 - Knee repair surgery 1999 - Hernia repair 2000 - IVC filter placement 2003 - Right foot surgery 2005 - Vein stripping 2007 Hospitalizations: COPD exacerbation, Atrial fibrillation, all surgeries Family history: - CVA, ovarian/uterine cancer in mother - Valvular abnormality in sister Medications: - Albuterol 0.5% 3 mL inh prn - Mometasone 220 mcg 2 puff inh rbid - Montelukast 10 mg po hs - Glipizide 10 mg po bid - Diltiazem 120 mg po daily - Warfarin 4 mg po hs Vitals signs: Temperature: 97.6F Pulse: 62 bpm Blood pressure: 139/67 mm Hg Respiratory rate: 20 brpm Oxygen saturation: 94% on 2L O2 via nasal canula Physical examination: General: no apparent distress, normocephalic, atraumatic Cardiovascular: RRR, +s1, +s2, no murmurs/rubs/gallops Pulmonary: wheezing, no rales or rhonchi Labs: Microbiology: - Sputum culture negative Imaging: - CXR 09/04/2017: biapical pleural thickening with upper lobe granulomatous changes, diffuse increased interstitial lung markings - CXR 09/06/2017: no focal infiltrate or effusion Assessment & Plan Influenza A - Serology positive for Influenza A - Patient placed on droplet precautions - CXR 09/04/2017: biapical pleural thickening with upper lobe granulomatous changes, diffuse increased interstitial lung markings - CXR 09/06/2017: no focal infiltrate or effusion - Continue IV fluids, oxygen therapy, and tylenol for fever - Continue Tamiflu 75 mg po bid until 09/10/2017 - Be aware of patient's medication allergies if considering starting antibiotics for secondary bacterial infection anytime during hospital course Asthma - Patient uses Albuterol, Mometasone, and Montelukast at home - Continue oxygen therapy and Duonebs History of pulmonary embolism - Patient has antiphospholipid syndrome and a history of DVT/PE - Continue Warfarin 4 mg po hs - 09/06/2017: PT 22.4, INR 1.9, APTT 40 - Monitor coagulation studies Past Patient History - Past Medical History & Family History Past Medical History?: Yes - Past Social History Smoking Status: Never Smoked - CARDIAC Hx Congestive Heart Failure: Yes Hx Hypertension: Yes - PULMONARY Hx Chronic Obstructive Pulmonary Disease (COPD): Yes - NEUROLOGICAL Hx Neurological Disorder: No Other/Comment: 1979 infection in the head - HEENT Hx HEENT Problems: Yes Hx Macular Degeneration: Yes Other/Comment: wear eyeglasses, sinus operation 1981 - RENAL Hx Chronic Kidney Disease: No - ENDOCRINE/METABOLIC Hx Diabetes Mellitus Type 2: Yes - HEMATOLOGICAL/ONCOLOGICAL Hx Blood Disorders: Yes - INTEGUMENTARY Hx Dermatological Problems: Yes Other/Comment: Dry skin elbow, on and off rash especially when feeling hot - MUSCULOSKELETAL/RHEUMATOLOGICAL Hx Arthritis: Yes - GASTROINTESTINAL Hx Diverticulitis: Yes (polyp removed) Hx Pancreatitis: Yes (2007) - GENITOURINARY/GYNECOLOGICAL Hx Genitourinary Disorders: Yes Hx Urinary Tract Infection: Yes - PSYCHIATRIC Hx Substance Use: No - SURGICAL HISTORY Hx Surgeries: Yes Hx Hysterectomy: Yes (1975,partial hysterectomy) Other/Comment: polyp removal ,vascular surgery 1983,1991 calcification remove of right breast,1993 bladder tuck,1994 operation left ft.,1999 knee surgery repair,2000hernia repair,2002 implant yenny cava filter,2005 surgery on rt. foot ,2007 vein stripping - ANESTHESIA Hx Anesthesia: Yes Hx Anesthesia Reactions: No Hx Malignant Hyperthermia: No Meds Allergies/Adverse Reactions: Allergies Allergy/AdvReac Type Severity Reaction Status Date / Time alatrofloxacin mesylate Allergy RASH Verified 09/05/17 11:27 [From Trovan] cefuroxime Allergy RASH Verified 09/05/17 11:27 lidocaine Allergy RASH Verified 09/05/17 11:27 linezolid [From Zyvox] Allergy RASH Verified 09/05/17 11:27 penicillin G Allergy RASH Verified 09/05/17 11:27 sulfamethoxazole Allergy RASH Verified 09/05/17 11:27 [From Bactrim] trimethoprim [From Bactrim] Allergy RASH Verified 09/05/17 11:27 trovafloxacin mesylate Allergy RASH Verified 09/05/17 11:27 [From Trovan] vancomycin Allergy RASH Verified 09/05/17 11:27 codeine AdvReac NAUSEA Verified 09/05/17 11:27 ofloxacin [From Floxin] AdvReac FATIGUE Verified 09/05/17 11:27 CT scan dye Allergy RASH Uncoded 10/21/15 01:48 ultravet Allergy DIZZINESS Uncoded 10/21/15 01:47 - Medications Medications: Current Medications Acetaminophen (Tylenol 325mg Tab) 650 mg PO Q6 PRN PRN Reason: Fever >100.4 F Last Admin: 09/07/17 14:11 Dose: 650 mg Albuterol Sulfate (Albuterol 0.083% Inhal Cristina (2.5 Mg/3 Ml) Ud) 2.5 mg IH RQ6 PRN PRN Reason: Shortness of Breath Albuterol/Ipratropium (Duoneb 3 Mg/0.5 Mg (3 Ml) Ud) 3 ml INH RQ6 [facility] Last Admin: 09/07/17 01:14 Dose: Not Given Calcium/Vitamin D (Oyster Shell Calcium/Vitamin D 500 Mg-200 Iu) 1 tab PO DAILY [facility] Last Admin: 09/07/17 10:22 Dose: 1 tab Diltiazem HCl (Cardizem Cd) 120 mg PO DAILY [facility] Last Admin: 09/07/17 10:22 Dose: 120 mg Ergocalciferol (Drisdol 50,000 Intl Units Cap) 1 cap PO QWK [facility] Last Admin: 09/06/17 10:05 Dose: 1 cap Famotidine (Pepcid) 20 mg PO DAILY [facility] Last Admin: 09/07/17 10:22 Dose: 20 mg Glipizide (Glucotrol) 10 mg PO BID [facility] Last Admin: 09/07/17 10:22 Dose: 10 mg Sodium Chloride (Sodium Chloride 0.9%) 1,000 mls @ 75 mls/hr IV .[id number] [facility] Last Admin: 09/07/17 08:30 Dose: Not Given Insulin Human Regular (Novolin R) 0 unit SC ACHS [facility] PRN Reason: Protocol Last Admin: 09/07/17 17:05 Dose: Not Given Mometasone Furoate (Asmanex Twisthaler 220 Mcg) 2 puff INH RBID [facility] Last Admin: 09/06/17 21:20 Dose: Not Given Montelukast Sodium (Singulair) 10 mg PO HS [facility] Last Admin: 09/06/17 21:40 Dose: 10 mg Oseltamivir Phosphate (Tamiflu Cap) 75 mg PO BID [facility] Stop: 09/10/17 01:56 Last Admin: 09/07/17 10:22 Dose: 75 mg Pneumococcal Polyvalent Vaccine (Pneumovax 23 Vaccine) 0.5 ml IM .ONCE ONE Stop: 09/08/17 10:01 Sitagliptin Phosphate (Januvia) 100 mg PO DAILY [facility] Last Admin: 09/07/17 10:30 Dose: Not Given Warfarin Sodium (Coumadin) 4 mg PO 1800 [facility] Stop: 09/07/17 18:01 Results - Vital Signs Recent Vital Signs: Last Vital Signs Temp 97.7 F 09/07/17 16:31 Pulse 54 L 09/07/17 16:31 Resp 20 09/07/17 16:31 BP 163/79 H 09/07/17 16:31 Pulse Ox 96 09/07/17 16:31 - Labs Result Diagrams: 09/07/17 08:47 09/07/17 08:47 Labs: Laboratory Results - last 24 hr 09/06/17 09/07/17 09/07/17 21:00 06:30 08:47 WBC 3.1 L RBC 4.37 Hgb 14.5 Hct 40.8 MCV 93.4 MCH 33.2 H MCHC 35.5 RDW 13.5 Plt Count 149 MPV 8.2 Neut % (Auto) 57.4 Lymph % (Auto) 28.0 [place] % (Auto) 11.4 H Eos % (Auto) 2.3 Baso % (Auto) 0.9 Neut # 1.8 Lymph # 0.9 L [place] # 0.4 Eos # 0.1 Baso # 0.0 PT INR APTT Sodium Potassium Chloride Carbon Dioxide Anion Gap BUN Creatinine Est GFR ( Amer) Est GFR (Non-Af Amer) POC Glucose (mg/dL) 147 H 94 Random Glucose Calcium Total Bilirubin AST ALT Alkaline Phosphatase Total Protein Albumin Globulin Albumin/Globulin Ratio 09/07/17 09/07/17 09/07/17 08:47 08:47 11:14 WBC RBC Hgb Hct MCV MCH MCHC RDW Plt Count MPV Neut % (Auto) Lymph % (Auto) [place] % (Auto) Eos % (Auto) Baso % (Auto) Neut # Lymph # [place] # Eos # Baso # PT 21.5 H INR 1.8 APTT 41 H Sodium 136 Potassium 5.1 Chloride 99 Carbon Dioxide 32 H Anion Gap 9 L BUN 12 Creatinine 0.7 Est GFR ( Amer) > 60 Est GFR (Non-Af Amer) > 60 POC Glucose (mg/dL) 185 H Random Glucose 135 H Calcium 8.1 L Total Bilirubin 0.4 AST 21 ALT 27 Alkaline Phosphatase 53 Total Protein 6.4 Albumin 3.6 Globulin 2.9 Albumin/Globulin Ratio 1.2 09/07/17 16:36 WBC RBC Hgb Hct MCV MCH MCHC RDW Plt Count MPV Neut % (Auto) Lymph % (Auto) [place] % (Auto) Eos % (Auto) Baso % (Auto) Neut # Lymph # [place] # Eos # Baso # PT INR APTT Sodium Potassium Chloride Carbon Dioxide Anion Gap BUN Creatinine Est GFR ( Amer) Est GFR (Non-Af Amer) POC Glucose (mg/dL) 145 H Random Glucose Calcium Total Bilirubin AST ALT Alkaline Phosphatase Total Protein Albumin Globulin Albumin/Globulin Ratio
[2017-09-07] MEDS: Mometasone 220 mcg/puff-14 puff Inh INH SCH (20:45)
[2017-09-08] MEDS: Albuterol-Ipratrop 3 mg / 0.5 (3 ml) UD INH SCH ×4 (01:07→20:11)
--- NOTE | 2017-09-08 07:02 | CP.PCM.PN ---
Subjective - Date & Time of Evaluation Date of Evaluation: 09/08/17 Time of Evaluation: 07:02 - Subjective Subjective: Medicine progress note for Dr. Johnson's service Patient was seen and examined at bedside in no acute distress. Patient was sitting up having breakfast. Patient still complains of cough productive of yellow sputum and chest/back pain with coughing. Patient denies chest pain, abdominal pain, nausea, fevers, and vomiting. Objective - Vital Signs/Intake and Output Vital Signs (last 24 hours): Temp Pulse Resp BP Pulse Ox 97.9 F 59 L 20 168/73 H 97 09/08/17 00:08 09/08/17 00:08 09/08/17 00:08 09/08/17 00:08 09/08/17 00:08 Intake and Output: 09/08/17 09/08/17 06:59 18:59 Intake Total 400 Balance 400 - Medications Medications: Current Medications Acetaminophen (Tylenol 325mg Tab) 650 mg PO Q6 PRN PRN Reason: Fever >100.4 F Last Admin: 09/07/17 14:11 Dose: 650 mg Albuterol Sulfate (Albuterol 0.083% Inhal Cristina (2.5 Mg/3 Ml) Ud) 2.5 mg IH RQ6 PRN PRN Reason: Shortness of Breath Albuterol/Ipratropium (Duoneb 3 Mg/0.5 Mg (3 Ml) Ud) 3 ml INH RQ6 [facility] Last Admin: 09/08/17 01:07 Dose: Not Given Calcium/Vitamin D (Oyster Shell Calcium/Vitamin D 500 Mg-200 Iu) 1 tab PO DAILY [facility] Last Admin: 09/07/17 10:22 Dose: 1 tab Diltiazem HCl (Cardizem Cd) 120 mg PO DAILY [facility] Last Admin: 09/07/17 10:22 Dose: 120 mg Ergocalciferol (Drisdol 50,000 Intl Units Cap) 1 cap PO QWK [facility] Last Admin: 09/06/17 10:05 Dose: 1 cap Famotidine (Pepcid) 20 mg PO DAILY [facility] Last Admin: 09/07/17 10:22 Dose: 20 mg Glipizide (Glucotrol) 10 mg PO BID [facility] Last Admin: 09/07/17 18:25 Dose: 10 mg Sodium Chloride (Sodium Chloride 0.9%) 1,000 mls @ 75 mls/hr IV .[id number] [facility] Last Admin: 09/07/17 21:42 Dose: 75 mls/hr Insulin Human Regular (Novolin R) 0 unit SC ACHS [facility] PRN Reason: Protocol Last Admin: 09/07/17 21:48 Dose: Not Given Mometasone Furoate (Asmanex Twisthaler 220 Mcg) 2 puff INH RBID [facility] Last Admin: 09/07/17 20:45 Dose: Not Given Montelukast Sodium (Singulair) 10 mg PO HS [facility] Last Admin: 09/07/17 21:42 Dose: 10 mg Oseltamivir Phosphate (Tamiflu Cap) 75 mg PO BID [facility] Stop: 09/10/17 01:56 Last Admin: 09/07/17 18:26 Dose: 75 mg Pneumococcal Polyvalent Vaccine (Pneumovax 23 Vaccine) 0.5 ml IM .ONCE ONE Stop: 09/08/17 10:01 Sitagliptin Phosphate (Januvia) 100 mg PO DAILY [facility] Last Admin: 09/07/17 10:30 Dose: Not Given - Labs Labs: 09/07/17 08:47 09/07/17 08:47 PT 21.5 SECONDS (9.7-12.2) H 09/07/17 08:47 INR 1.8 09/07/17 08:47 APTT 41 SECONDS (21-34) H 09/07/17 08:47 - Additional Findings Additional findings: - Constitutional Appears: No Acute Distress - Head Exam Head Exam: ATRAUMATIC, NORMOCEPHALIC - Eye Exam Eye Exam: EOMI, Normal appearance, PERRL - ENT Exam ENT Exam: Mucous Membranes Moist - Respiratory Exam Respiratory Exam: Prolonged Expiratory Phase, Wheezes, NORMAL BREATHING PATTERN , Productive cough (yellow sputum). absent: Clear to Auscultation Bilateral, Respiratory Distress - Cardiovascular Exam Cardiovascular Exam: Irregular Rhythm, +S1, +S2 - GI/Abdominal Exam GI & Abdominal Exam: Normal Bowel Sounds, Soft. absent: Distended, Firm, Tenderness - Extremities Exam Extremities exam: Negative for: normal inspection (variscosites; chronic skin changes 2/2 venous stasis), tenderness - Neurological Exam Neurological exam: Alert, Oriented x3 - Psychiatric Exam Psychiatric exam: Normal Affect, Normal Mood - Skin Skin Exam: Dry, Intact, Warm Assessment and Plan (1) Influenza A Status: Acute (2) Asthma Status: Acute (3) A-fib Status: Acute (4) HTN (hypertension) Status: Acute (5) Diabetes mellitus Status: Chronic (6) Hx pulmonary embolism Status: Acute (7) Prophylactic measure Status: Acute - Assessment and Plan (Free Text) Plan: Assessment & Plan (1) Influenza A Assessment and Plan: Influenza A: positive * CXR: biapical pleural thickening w/upper lobar granulomatous changes; diffuse increased interstitial lung markings. * Pulmonology consulted, Dr. Bucio, rec appreciated * Dr. Ordonez was consulted and called but never reached. (Patient sees as outpatient) * Medications: * Tamiflu 75mg PO BID for total of 5 days (started 09/05/17) * Duonebs Q6sch * O2 via nasal cannula prn * IV Fluids * Phenergen 5ml PO prn * Reglan * Zofran 4mg IV Q6h * Tylenol prn for fever * Droplet precautions * Repeat chest xray (09/06): no focal infiltrate or effusion * Sputum cx: negative (2) Asthma Assessment and Plan: History of asthma; Uses inhalers and duonebs at home prn. Patient sees Dr. Ordonez as outpatient. * CXR: biapical pleural thickening w/upper lobar granulomatous changes; diffuse increased interstitial lung markings. * Pulmonology consulted, Dr. Bucio, recs appreciated * Dr. Ordonez was consulted and called but never reached. (Patient sees as outpatient) * Duonebs Q6 rashaad * O2 via nasal cannula prn * Restart home medications (3) A-fib Assessment and Plan: History of A fib * EKG: nsr * Continue home medications- Cardizem 120mg PO daily * Rate controlled * Monitor on telemetry (4) HTN (hypertension) Assessment and Plan: Continue home medications Monitor vitals (5) Diabetes mellitus Assessment and Plan: Continue home medications ISS Hypoglycemia protocol Monitor blood glucose, Accuchecks (6) Hx pulmonary embolism Assessment and Plan: Patient has a history of PE, DVT, and antiphospholipid syndrome. * Continue home medication- Coumadin 4mg PO HS (place order daily) * Monitor INR daily (7) Prophylactic measure Assessment and Plan: GI: pepcid 20mg po daily DVT: no SCDs; patient on Coumadin 4mg PO HS Heart healthy diet Droplet precautions Discussed with Dr. Johnson
[2017-09-08] MEDS: (Novolin R) Insulin Human Regular 100 units/ml vial SC SCH ×4 (07:58→22:53)
[2017-09-08 08:36] LABS: BASO # 0.1 K/uL (0.0-0.2); BASO % 2.5 % (0.0-2.0); EOS # 0.1 K/uL (0.0-0.7); EOS % 3.9 % (0.0-4.0); HEMOGLOBIN 14.3 g/dL (11.0-16.0); LYMPH # 0.9 K/uL (1.0-4.3); LYMPH % 30.3 % (20.0-40.0); MEAN CELL VOLUME 93.6 fL (81.0-99.0); MEAN CORPUSCULAR HEMOGLOBIN 32.9 pg (27.0-31.0); MEAN CORPUSCULAR HGB CONC 35.2 g/dL (33.0-37.0); MEAN PLATELET VOLUME 8.4 fL (7.2-11.7); MONO # 0.3 K/uL (0.0-0.8); MONO % 9.9 % (0.0-10.0); NEUT # 1.6 K/uL (1.8-7.0); NEUT % 53.4 % (50.0-75.0); NRBC % 0.1 % (0.0-2.0); RBC 4.33 Mil/uL (3.80-5.20); RED CELL DISTRIBUTION WIDTH 13.1 % (11.5-14.5)
[2017-09-08 08:41] LABS: INR 2.4; PROTHROMBIN TIME 28.5 SECONDS (9.7-12.2)
[2017-09-08 09:24] LABS: ALB/GLOB RATIO 1.2 (1.0-2.1); ALBUMIN 3.5 g/dL (3.5-5.0); ALT/SGPT 18 U/L (9-52); AST/SGOT 21 U/L (14-36); BLOOD UREA NITROGEN 13 mg/dL (7-17); CALCIUM 8.5 mg/dl (8.6-10.4); GFR AFRICAN-AMERICAN > 60; GFR NON-AFRICAN AMERICAN > 60
[2017-09-08] MEDS ORDERED: Pneumococcal 23-Valent Vaccine IM ONE (10:00)
[2017-09-08] MEDS: Calcium-Vit D 500 mg-200 Units Tab UD PO SCH (10:29)
[2017-09-08] MEDS: diltiaZEM 120 mg/24 Hours CD Cap PO SCH (10:29)
--- NOTE | 2017-09-08 11:19 | CP.PCM.PN ---
Subjective - Date & Time of Evaluation Date of Evaluation: 09/08/17 Time of Evaluation: 08:20 - Subjective Subjective: Patient seen and examined Still complaining of cough and dyspnea Afebrile Complaining of backache Objective - Vital Signs/Intake and Output Vital Signs (last 24 hours): Temp Pulse Resp BP Pulse Ox 97.6 F 60 20 141/77 97 09/08/17 08:00 09/08/17 08:00 09/08/17 08:00 09/08/17 08:00 09/08/17 08:00 Intake and Output: 09/08/17 09/08/17 06:59 18:59 Intake Total 400 600 Balance 400 600 - Medications Medications: Current Medications Acetaminophen (Tylenol 325mg Tab) 650 mg PO Q6 PRN PRN Reason: Fever >100.4 F Last Admin: 09/07/17 14:11 Dose: 650 mg Albuterol Sulfate (Albuterol 0.083% Inhal Cristina (2.5 Mg/3 Ml) Ud) 2.5 mg IH RQ6 PRN PRN Reason: Shortness of Breath Albuterol/Ipratropium (Duoneb 3 Mg/0.5 Mg (3 Ml) Ud) 3 ml INH RQ6 [facility] Last Admin: 09/08/17 07:40 Dose: 3 ml Calcium/Vitamin D (Oyster Shell Calcium/Vitamin D 500 Mg-200 Iu) 1 tab PO DAILY [facility] Last Admin: 09/08/17 10:29 Dose: 1 tab Diltiazem HCl (Cardizem Cd) 120 mg PO DAILY [facility] Last Admin: 09/08/17 10:29 Dose: 120 mg Ergocalciferol (Drisdol 50,000 Intl Units Cap) 1 cap PO QWK [facility] Last Admin: 09/06/17 10:05 Dose: 1 cap Famotidine (Pepcid) 20 mg PO DAILY [facility] Last Admin: 09/08/17 10:29 Dose: 20 mg Glipizide (Glucotrol) 10 mg PO BID [facility] Last Admin: 09/08/17 10:29 Dose: 10 mg Insulin Human Regular (Novolin R) 0 unit SC ACHS [facility] PRN Reason: Protocol Last Admin: 09/08/17 07:58 Dose: Not Given Mometasone Furoate (Asmanex Twisthaler 220 Mcg) 2 puff INH RBID [facility] Last Admin: 09/07/17 20:45 Dose: Not Given Montelukast Sodium (Singulair) 10 mg PO HS [facility] Last Admin: 09/07/17 21:42 Dose: 10 mg Oseltamivir Phosphate (Tamiflu Cap) 75 mg PO BID [facility] Stop: 09/10/17 01:56 Last Admin: 09/08/17 10:28 Dose: 75 mg Sitagliptin Phosphate (Januvia) 100 mg PO DAILY [facility] Last Admin: 09/08/17 10:32 Dose: Not Given - Labs Labs: 09/08/17 08:26 09/08/17 08:26 PT 28.5 SECONDS (9.7-12.2) H D 09/08/17 08:26 INR 2.4 D 09/08/17 08:26 APTT 43 SECONDS (21-34) H 09/08/17 08:26 - Head Exam Head Exam: ATRAUMATIC, NORMOCEPHALIC - Eye Exam Eye Exam: Normal appearance - ENT Exam ENT Exam: Mucous Membranes Moist - Respiratory Exam Respiratory Exam: Rhonchi - Cardiovascular Exam Cardiovascular Exam: REGULAR RHYTHM - GI/Abdominal Exam GI & Abdominal Exam: Soft, Normal Bowel Sounds Assessment and Plan (1) Asthma Assessment & Plan: continue nebulizer treatment and inhaled steroids Continue Tamiflu Status: Acute (2) Hx pulmonary embolism Status: Acute (3) Influenza A Status: Acute
[2017-09-08] MEDS: Mometasone 220 mcg/puff-14 puff Inh INH SCH ×2 (13:46→20:15)
[2017-09-08] MEDS ORDERED: Promethazine 12.5 mg/10 ml Syrup PO PRN (18:52)
[2017-09-08] MEDS: Promethazine DM 6.25 mg-15 mg/5 ml Syrup PO PRN (19:30)
[2017-09-09] MEDS: Albuterol-Ipratrop 3 mg / 0.5 (3 ml) UD INH SCH ×4 (02:05→19:53)
[2017-09-09] MEDS: (Novolin R) Insulin Human Regular 100 units/ml vial SC SCH ×4 (07:30→21:57)
--- NOTE | 2017-09-09 07:37 | CP.PCM.PN ---
Subjective - Date & Time of Evaluation Date of Evaluation: 09/09/17 Time of Evaluation: 07:35 - Subjective Subjective: PGY-[address] Johnson's service: Patient seen and examined at bedside. Nursing reports no acute events overnight. Patient found sitting comfortably at bedside. Patient reports decreased sputum production, and improved cough today. She reports being able to walk to the bathroom without difficulty, and is tolerating diet. Objective - Vital Signs/Intake and Output Vital Signs (last 24 hours): Temp Pulse Resp BP Pulse Ox 98.6 F 74 20 129/58 L 90 L 09/08/17 23:40 09/09/17 01:00 09/08/17 23:40 09/08/17 23:40 09/08/17 23:40 Intake and Output: 09/09/17 09/09/17 06:59 18:59 Intake Total 150 Balance 150 - Medications Medications: Current Medications Acetaminophen (Tylenol 325mg Tab) 650 mg PO Q6 PRN PRN Reason: Fever >100.4 F Last Admin: 09/08/17 14:11 Dose: 650 mg Albuterol Sulfate (Albuterol 0.083% Inhal Cristina (2.5 Mg/3 Ml) Ud) 2.5 mg IH RQ6 PRN PRN Reason: Shortness of Breath Albuterol/Ipratropium (Duoneb 3 Mg/0.5 Mg (3 Ml) Ud) 3 ml INH RQ6 [facility] Last Admin: 09/09/17 02:05 Dose: Not Given Calcium/Vitamin D (Oyster Shell Calcium/Vitamin D 500 Mg-200 Iu) 1 tab PO DAILY [facility] Last Admin: 09/08/17 10:29 Dose: 1 tab Diltiazem HCl (Cardizem Cd) 120 mg PO DAILY [facility] Last Admin: 09/08/17 10:29 Dose: 120 mg Ergocalciferol (Drisdol 50,000 Intl Units Cap) 1 cap PO QWK [facility] Last Admin: 09/06/17 10:05 Dose: 1 cap Famotidine (Pepcid) 20 mg PO DAILY [facility] Last Admin: 09/08/17 10:29 Dose: 20 mg Glipizide (Glucotrol) 10 mg PO BID [facility] Last Admin: 09/08/17 17:47 Dose: 10 mg Insulin Human Regular (Novolin R) 0 unit SC ACHS [facility] PRN Reason: Protocol Last Admin: 09/08/17 22:53 Dose: Not Given Metoclopramide HCl (Reglan) 10 mg PO ACHS [facility] Last Admin: 09/08/17 21:44 Dose: 10 mg Mometasone Furoate (Asmanex Twisthaler 220 Mcg) 2 puff INH RBID [facility] Last Admin: 09/08/17 20:15 Dose: 1 puff Montelukast Sodium (Singulair) 10 mg PO HS [facility] Last Admin: 09/08/17 21:44 Dose: 10 mg Ondansetron HCl (Zofran Inj) 4 mg IVP Q6H PRN PRN Reason: Nausea/Vomiting Last Admin: 09/08/17 19:30 Dose: 4 mg Oseltamivir Phosphate (Tamiflu Cap) 75 mg PO BID [facility] Stop: 09/10/17 01:56 Last Admin: 09/08/17 17:47 Dose: 75 mg Promethazine HCl/Dextromethorphan (Phenergan Dm Syrup) 5 ml PO Q6H PRN PRN Reason: Cough Last Admin: 09/08/17 19:30 Dose: 5 ml Sitagliptin Phosphate (Januvia) 100 mg PO DAILY [facility] Last Admin: 09/08/17 10:32 Dose: Not Given - Labs Labs: 09/08/17 08:26 09/08/17 08:26 PT 28.5 SECONDS (9.7-12.2) H D 09/08/17 08:26 INR 2.4 D 09/08/17 08:26 APTT 43 SECONDS (21-34) H 09/08/17 08:26 - Additional Findings Additional findings: - Constitutional Appears: No Acute Distress - Head Exam Head Exam: ATRAUMATIC, NORMOCEPHALIC - Eye Exam Eye Exam: EOMI, Normal appearance, PERRL - ENT Exam ENT Exam: Mucous Membranes Moist - Respiratory Exam Respiratory Exam: Prolonged Expiratory Phase, Wheezes, NORMAL BREATHING PATTERN , Productive cough (yellow sputum). absent: Clear to Auscultation Bilateral, Respiratory Distress - Cardiovascular Exam Cardiovascular Exam: Irregular Rhythm, +S1, +S2 - GI/Abdominal Exam GI & Abdominal Exam: Normal Bowel Sounds, Soft. absent: Distended, Firm, Tenderness - Extremities Exam Extremities exam: Negative for: normal inspection (variscosites; chronic skin changes 2/2 venous stasis), tenderness - Neurological Exam Neurological exam: Alert, Oriented x3 - Psychiatric Exam Psychiatric exam: Normal Affect, Normal Mood - Skin Skin Exam: Dry, Intact, Warm Assessment and Plan - Assessment and Plan (Free Text) Plan: (1) Influenza A Assessment and Plan: Influenza A: positive * CXR: biapical pleural thickening w/upper lobar granulomatous changes; diffuse increased interstitial lung markings. * Pulmonology consulted, Dr. Bucio, rec appreciated * Dr. Ordonez was consulted and called but never reached. (Patient sees as outpatient) * Medications: * Tamiflu 75mg PO BID for total of 5 days (started 09/05/17) * Duonebs Q6sch * O2 via nasal cannula prn * IV Fluids * Phenergen 5ml PO prn * Reglan * Zofran 4mg IV Q6h * Tylenol prn for fever * Droplet precautions * Repeat chest xray (09/06): no focal infiltrate or effusion * Sputum cx: negative (2) Asthma Assessment and Plan: History of asthma; Uses inhalers and duonebs at home prn. Patient sees Dr. Ordonez as outpatient. * CXR: biapical pleural thickening w/upper lobar granulomatous changes; diffuse increased interstitial lung markings. * Pulmonology consulted, Dr. Bucio, recs appreciated * Dr. Ordonez was consulted and called but never reached. (Patient sees as outpatient) * Duonebs Q6 rashaad * O2 via nasal cannula prn * Restart home medications (3) A-fib Assessment and Plan: History of A fib * EKG: nsr * Continue home medications- Cardizem 120mg PO daily * Rate controlled * Monitor on telemetry (4) HTN (hypertension) Assessment and Plan: Continue home medications Monitor vitals (5) Diabetes mellitus Assessment and Plan: Continue home medications ISS Hypoglycemia protocol Monitor blood glucose, Accuchecks (6) Hx pulmonary embolism Assessment and Plan: Patient has a history of PE, DVT, and antiphospholipid syndrome. * Continue home medication- Coumadin 4mg PO HS (place order daily) * Monitor INR daily (7) Prophylactic measure Assessment and Plan: GI: pepcid 20mg po daily DVT: no SCDs; patient on Coumadin 4mg PO HS Heart healthy diet Droplet precautions Discussed with Dr. Johnson
[2017-09-09] MEDS: Mometasone 220 mcg/puff-14 puff Inh INH SCH ×2 (07:38→19:53)
[2017-09-09 09:04] LABS: BASO % 0.2 % (0.0-2.0); EOS # 0.1 K/uL (0.0-0.7); EOS % 0.6 % (0.0-4.0); HEMOGLOBIN 13.8 g/dL (11.0-16.0); LYMPH # 1.1 K/uL (1.0-4.3); LYMPH % 11.8 % (20.0-40.0); MEAN CELL VOLUME 92.7 fL (81.0-99.0); MEAN CORPUSCULAR HGB CONC 35.6 g/dL (33.0-37.0); MEAN PLATELET VOLUME 8.6 fL (7.2-11.7); MONO # 0.6 K/uL (0.0-0.8); MONO % 6.2 % (0.0-10.0); NEUT # 7.8 K/uL (1.8-7.0); NEUT % 81.2 % (50.0-75.0); RBC 4.19 Mil/uL (3.80-5.20); RED CELL DISTRIBUTION WIDTH 13.2 % (11.5-14.5)
[2017-09-09 09:06] LABS: WHITE BLOOD COUNT 9.6 K/uL (4.8-10.8)
[2017-09-09 09:17] LABS: INR 3.2
[2017-09-09 09:28] LABS: ALB/GLOB RATIO 1.2 (1.0-2.1); ALBUMIN 3.6 g/dL (3.5-5.0); ALT/SGPT 25 U/L (9-52); AST/SGOT 20 U/L (14-36); BLOOD UREA NITROGEN 12 mg/dL (7-17); CALCIUM 8.8 mg/dl (8.6-10.4); GFR AFRICAN-AMERICAN > 60; GFR NON-AFRICAN AMERICAN > 60
[2017-09-09 09:32] LABS: PROTHROMBIN TIME 37.7 SECONDS (9.7-12.2)
[2017-09-09] MEDS: Calcium-Vit D 500 mg-200 Units Tab UD PO SCH (10:29)
[2017-09-09] MEDS: diltiaZEM 120 mg/24 Hours CD Cap PO SCH (10:29)
--- NOTE | 2017-09-09 15:16 | CP.PCM.PN ---
Objective - Vital Signs/Intake and Output Vital Signs (last 24 hours): Temp Pulse Resp BP Pulse Ox 98 F 75 20 115/64 93 L 09/09/17 08:00 09/09/17 13:58 09/09/17 08:00 09/09/17 08:00 09/09/17 08:00 Intake and Output: 09/09/17 09/09/17 06:59 18:59 Intake Total 150 Balance 150 - Medications Medications: Current Medications Acetaminophen (Tylenol 325mg Tab) 650 mg PO Q6 PRN PRN Reason: Fever >100.4 F Last Admin: 09/08/17 14:11 Dose: 650 mg Albuterol Sulfate (Albuterol 0.083% Inhal Cristina (2.5 Mg/3 Ml) Ud) 2.5 mg IH RQ6 PRN PRN Reason: Shortness of Breath Albuterol/Ipratropium (Duoneb 3 Mg/0.5 Mg (3 Ml) Ud) 3 ml INH RQ6 [facility] Last Admin: 09/09/17 13:59 Dose: 3 ml Calcium/Vitamin D (Oyster Shell Calcium/Vitamin D 500 Mg-200 Iu) 1 tab PO DAILY [facility] Last Admin: 09/09/17 10:29 Dose: 1 tab Diltiazem HCl (Cardizem Cd) 120 mg PO DAILY [facility] Last Admin: 09/09/17 10:29 Dose: 120 mg Ergocalciferol (Drisdol 50,000 Intl Units Cap) 1 cap PO QWK [facility] Last Admin: 09/06/17 10:05 Dose: 1 cap Famotidine (Pepcid) 20 mg PO DAILY [facility] Last Admin: 09/09/17 13:01 Dose: 20 mg Glipizide (Glucotrol) 10 mg PO BID [facility] Last Admin: 09/09/17 10:29 Dose: 10 mg Insulin Human Regular (Novolin R) 0 unit SC ACHS [facility] PRN Reason: Protocol Last Admin: 09/09/17 13:02 Dose: 2 unit Metoclopramide HCl (Reglan) 10 mg PO ACHS [facility] Last Admin: 09/09/17 13:01 Dose: 10 mg Mometasone Furoate (Asmanex Twisthaler 220 Mcg) 2 puff INH RBID [facility] Last Admin: 09/09/17 07:38 Dose: 2 puff Montelukast Sodium (Singulair) 10 mg PO HS [facility] Last Admin: 09/08/17 21:44 Dose: 10 mg Ondansetron HCl (Zofran Inj) 4 mg IVP Q6H PRN PRN Reason: Nausea/Vomiting Last Admin: 09/08/17 19:30 Dose: 4 mg Oseltamivir Phosphate (Tamiflu Cap) 75 mg PO BID [facility] Stop: 09/10/17 01:56 Last Admin: 09/09/17 10:29 Dose: 75 mg Promethazine HCl/Dextromethorphan (Phenergan Dm Syrup) 5 ml PO Q6H PRN PRN Reason: Cough Last Admin: 09/08/17 19:30 Dose: 5 ml Sitagliptin Phosphate (Januvia) 100 mg PO DAILY [facility] Last Admin: 09/09/17 10:31 Dose: Not Given Warfarin Sodium (Coumadin) 2 mg PO DAILY@1800 [facility] Stop: 09/09/17 18:01 - Labs Labs: 09/09/17 08:59 09/09/17 08:59 PT 37.7 SECONDS (9.7-12.2) H* D 09/09/17 08:59 INR 3.2 09/09/17 08:59 APTT 46 SECONDS (21-34) H 09/09/17 08:59 Assessment and Plan (1) Asthma Status: Acute (2) Hx pulmonary embolism Status: Acute (3) Influenza A Status: Acute
[2017-09-09] MEDS: Promethazine DM 6.25 mg-15 mg/5 ml Syrup PO PRN (16:35)
[2017-09-10 00:35] VITALS: RESP 20
[2017-09-10] MEDS: Albuterol-Ipratrop 3 mg / 0.5 (3 ml) UD INH SCH ×4 (02:02→21:15)
[2017-09-10] MEDS: (Novolin R) Insulin Human Regular 100 units/ml vial SC SCH ×4 (07:18→21:54)
[2017-09-10] MEDS: Mometasone 220 mcg/puff-14 puff Inh INH SCH ×2 (07:25→21:15)
--- NOTE | 2017-09-10 07:42 | CP.PCM.PN ---
Subjective - Date & Time of Evaluation Date of Evaluation: 09/10/17 Time of Evaluation: 07:42 - Subjective Subjective: PGY-[address] Johnson's service: Patient seen and examined at bedside. Nursing reports no acute events overnight. Patient found sitting comfortably at bedside. Patient states her cough, body aches are improved today. She denies difficulty urinating, moving bowels, and is tolerating diet. She is asking when she will go home. Objective - Vital Signs/Intake and Output Vital Signs (last 24 hours): Temp Pulse Resp BP Pulse Ox 98 F 88 20 128/66 96 09/10/17 00:30 09/10/17 00:30 09/10/17 00:30 09/10/17 00:30 09/10/17 00:30 Intake and Output: 09/10/17 09/10/17 06:59 18:59 Intake Total 480 Balance 480 - Medications Medications: Current Medications Acetaminophen (Tylenol 325mg Tab) 650 mg PO Q6 PRN PRN Reason: Fever >100.4 F Last Admin: 09/09/17 16:35 Dose: 650 mg Albuterol Sulfate (Albuterol 0.083% Inhal Cristina (2.5 Mg/3 Ml) Ud) 2.5 mg IH RQ6 PRN PRN Reason: Shortness of Breath Albuterol/Ipratropium (Duoneb 3 Mg/0.5 Mg (3 Ml) Ud) 3 ml INH RQ6 [facility] Last Admin: 09/10/17 07:25 Dose: 3 ml Calcium/Vitamin D (Oyster Shell Calcium/Vitamin D 500 Mg-200 Iu) 1 tab PO DAILY [facility] Last Admin: 09/09/17 10:29 Dose: 1 tab Diltiazem HCl (Cardizem Cd) 120 mg PO DAILY [facility] Last Admin: 09/09/17 10:29 Dose: 120 mg Ergocalciferol (Drisdol 50,000 Intl Units Cap) 1 cap PO QWK [facility] Last Admin: 09/06/17 10:05 Dose: 1 cap Famotidine (Pepcid) 20 mg PO DAILY [facility] Last Admin: 09/09/17 13:01 Dose: 20 mg Glipizide (Glucotrol) 10 mg PO BID [facility] Last Admin: 09/09/17 17:51 Dose: 10 mg Insulin Human Regular (Novolin R) 0 unit SC ACHS [facility] PRN Reason: Protocol Last Admin: 09/10/17 07:18 Dose: Not Given Metoclopramide HCl (Reglan) 10 mg PO ACHS [facility] Last Admin: 09/10/17 06:34 Dose: 10 mg Mometasone Furoate (Asmanex Twisthaler 220 Mcg) 2 puff INH RBID [facility] Last Admin: 09/10/17 07:25 Dose: 2 puff Montelukast Sodium (Singulair) 10 mg PO HS [facility] Last Admin: 09/09/17 21:27 Dose: 10 mg Ondansetron HCl (Zofran Inj) 4 mg IVP Q6H PRN PRN Reason: Nausea/Vomiting Last Admin: 09/08/17 19:30 Dose: 4 mg Promethazine HCl/Dextromethorphan (Phenergan Dm Syrup) 5 ml PO Q6H PRN PRN Reason: Cough Last Admin: 09/09/17 16:35 Dose: 5 ml Sitagliptin Phosphate (Januvia) 100 mg PO DAILY [facility] Last Admin: 09/09/17 10:31 Dose: Not Given - Labs Labs: 09/09/17 08:59 09/09/17 08:59 PT 37.7 SECONDS (9.7-12.2) H* D 09/09/17 08:59 INR 3.2 09/09/17 08:59 APTT 46 SECONDS (21-34) H 09/09/17 08:59 - Additional Findings Additional findings: - Constitutional Appears: No Acute Distress - Head Exam Head Exam: ATRAUMATIC, NORMOCEPHALIC - Eye Exam Eye Exam: EOMI, Normal appearance, PERRL - ENT Exam ENT Exam: Mucous Membranes Moist - Respiratory Exam Respiratory Exam: Prolonged Expiratory Phase NORMAL BREATHING PATTERN, Productive cough (yellow sputum). absent: Clear to Auscultation Bilateral, Respiratory Distress - Cardiovascular Exam Cardiovascular Exam: Irregular Rhythm, +S1, +S2 - GI/Abdominal Exam GI & Abdominal Exam: Normal Bowel Sounds, Soft. absent: Distended, Firm, Tenderness - Extremities Exam Extremities exam: Negative for: normal inspection (variscosites; chronic skin changes 2/2 venous stasis), tenderness - Neurological Exam Neurological exam: Alert, Oriented x3 - Psychiatric Exam Psychiatric exam: Normal Affect, Normal Mood - Skin Skin Exam: Dry, Intact, Warm Assessment and Plan - Assessment and Plan (Free Text) Plan: (1) Influenza A Assessment and Plan: Influenza A: positive * CXR: biapical pleural thickening w/upper lobar granulomatous changes; diffuse increased interstitial lung markings. * Pulmonology consulted, Dr. Bucio, rec appreciated * Dr. Ordonez was consulted and called but never reached. (Patient sees as outpatient) * Medications: * Tamiflu 75mg PO BID for total of 5 days (started 09/05/17, ends 09/10) * Duonebs Q6sch * O2 via nasal cannula prn * IV Fluids * Phenergen 5ml PO prn * Reglan * Zofran 4mg IV Q6h * Tylenol prn for fever * Droplet precautions * Repeat chest xray (09/06): no focal infiltrate or effusion * Sputum cx: negative (2) Asthma Assessment and Plan: History of asthma; Uses inhalers and duonebs at home prn. Patient sees Dr. Ordonez as outpatient. * CXR: biapical pleural thickening w/upper lobar granulomatous changes; diffuse increased interstitial lung markings. * Pulmonology consulted, Dr. Bucio, recs appreciated * Dr. Ordonez was consulted and called but never reached. (Patient sees as outpatient) * Duonebs Q6 rashaad * O2 via nasal cannula prn * Restart home medications (3) A-fib Assessment and Plan: History of A fib * EKG: nsr * Continue home medications- Cardizem 120mg PO daily * Rate controlled * Monitor on telemetry Coumadin: 2mg for tonight, INR 2.9 (4) HTN (hypertension) Assessment and Plan: Continue home medications Monitor vitals (5) Diabetes mellitus Assessment and Plan: Continue home medications ISS Hypoglycemia protocol Monitor blood glucose, Accuchecks (6) Hx pulmonary embolism Assessment and Plan: Patient has a history of PE, DVT, and antiphospholipid syndrome. * Continue home medication- Coumadin 4mg PO HS (place order daily) * Monitor INR daily (7) Prophylactic measure Assessment and Plan: GI: pepcid 20mg po daily DVT: no SCDs; patient on Coumadin 2mg PO HS Heart healthy diet Droplet precautions Disposition: DC planning for tomorrow Discussed with Dr. Johnson
[2017-09-10 08:04] LABS: BASO % 0.5 % (0.0-2.0); EOS # 0.1 K/uL (0.0-0.7); EOS % 1.3 % (0.0-4.0); HEMOGLOBIN 14.1 g/dL (11.0-16.0); LYMPH # 1.5 K/uL (1.0-4.3); LYMPH % 16.6 % (20.0-40.0); MEAN CELL VOLUME 93.9 fL (81.0-99.0); MEAN CORPUSCULAR HEMOGLOBIN 32.3 pg (27.0-31.0); MEAN CORPUSCULAR HGB CONC 34.4 g/dL (33.0-37.0); MEAN PLATELET VOLUME 8.3 fL (7.2-11.7); MONO # 0.6 K/uL (0.0-0.8); MONO % 6.7 % (0.0-10.0); NEUT # 6.7 K/uL (1.8-7.0); NEUT % 74.9 % (50.0-75.0); RBC 4.37 Mil/uL (3.80-5.20); WHITE BLOOD COUNT 8.9 K/uL (4.8-10.8)
[2017-09-10 08:10] LABS: INR 2.9
[2017-09-10 08:36] LABS: ALB/GLOB RATIO 1.2 (1.0-2.1); ALBUMIN 3.9 g/dL (3.5-5.0); ALT/SGPT 18 U/L (9-52); AST/SGOT 22 U/L (14-36); BLOOD UREA NITROGEN 16 mg/dL (7-17); CALCIUM 8.7 mg/dl (8.6-10.4); GFR AFRICAN-AMERICAN > 60; GFR NON-AFRICAN AMERICAN > 60
[2017-09-10] MEDS: diltiaZEM 120 mg/24 Hours CD Cap PO SCH (09:17)
[2017-09-10] MEDS: Calcium-Vit D 500 mg-200 Units Tab UD PO SCH (09:17)
[2017-09-10 14:36] LABS: PROTHROMBIN TIME 34.4 SECONDS (9.7-12.2)
[2017-09-10] MEDS: Promethazine DM 6.25 mg-15 mg/5 ml Syrup PO PRN (21:09)
[2017-09-11] MEDS: (Novolin R) Insulin Human Regular 100 units/ml vial SC SCH ×3 (08:10→16:31)
[2017-09-11 08:16] LABS: BASO % 0.3 % (0.0-2.0); EOS # 0.1 K/uL (0.0-0.7); EOS % 1.5 % (0.0-4.0); HEMOGLOBIN 14.4 g/dL (11.0-16.0); LYMPH # 1.4 K/uL (1.0-4.3); LYMPH % 17.7 % (20.0-40.0); MEAN CELL VOLUME 93.3 fL (81.0-99.0); MEAN CORPUSCULAR HEMOGLOBIN 32.4 pg (27.0-31.0); MEAN CORPUSCULAR HGB CONC 34.7 g/dL (33.0-37.0); MEAN PLATELET VOLUME 8.6 fL (7.2-11.7); MONO # 0.6 K/uL (0.0-0.8); MONO % 7.3 % (0.0-10.0); NEUT # 5.7 K/uL (1.8-7.0); NEUT % 73.2 % (50.0-75.0); NRBC % 0.1 % (0.0-2.0); RBC 4.43 Mil/uL (3.80-5.20); WHITE BLOOD COUNT 7.8 K/uL (4.8-10.8)
[2017-09-11 08:22] LABS: INR 2.9; PROTHROMBIN TIME 34.7 SECONDS (9.7-12.2)
[2017-09-11 08:59] LABS: ALB/GLOB RATIO 1.2 (1.0-2.1); ALBUMIN 3.9 g/dL (3.5-5.0); ALT/SGPT 30 U/L (9-52); AST/SGOT 19 U/L (14-36); BLOOD UREA NITROGEN 19 mg/dL (7-17); CALCIUM 8.9 mg/dl (8.6-10.4); GFR AFRICAN-AMERICAN > 60; GFR NON-AFRICAN AMERICAN > 60
[2017-09-11] MEDS: Mometasone 220 mcg/puff-14 puff Inh INH SCH (09:27)
[2017-09-11] MEDS: Calcium-Vit D 500 mg-200 Units Tab UD PO SCH (10:14)
[2017-09-11] MEDS: diltiaZEM 120 mg/24 Hours CD Cap PO SCH (10:25)
--- NOTE | 2017-09-11 12:49 | CP.PCM.DIS ---
Provider - Provider Date of Admission: 09/05/17 03:28 Attending physician: Harry Johnson Jr, MD Consults: Pulmonology- Dr. Bucio Time Spent in preparation of Discharge (in minutes): 45 Diagnosis - Discharge Diagnosis (1) Influenza A Status: Acute (2) Asthma Status: Acute (3) A-fib Status: Acute (4) HTN (hypertension) Status: Acute (5) Diabetes mellitus Status: Chronic (6) Hx pulmonary embolism Status: Acute (7) Prophylactic measure Status: Acute Hospital Course - Lab Results Lab Results: Micro Results 09/06/17 Unknown Sputum Gram Stain - Final 09/06/17 Unknown Sputum Sputum Culture - Final NORMAL ORAL FREIDA Most Recent Lab Values WBC 7.8 K/uL (4.8-10.8) 09/11/17 08:05 RBC 4.43 Mil/uL (3.80-5.20) 09/11/17 08:05 Hgb 14.4 g/dL (11.0-16.0) 09/11/17 08:05 Hct 41.4 % (34.0-47.0) 09/11/17 08:05 MCV 93.3 fL (81.0-99.0) 09/11/17 08:05 MCH 32.4 pg (27.0-31.0) H 09/11/17 08:05 MCHC 34.7 g/dL (33.0-37.0) 09/11/17 08:05 RDW 13.0 % (11.5-14.5) 09/11/17 08:05 Plt Count 191 K/uL (130-400) 09/11/17 08:05 MPV 8.6 fL (7.2-11.7) 09/11/17 08:05 Neut % (Auto) 73.2 % (50.0-75.0) 09/11/17 08:05 Lymph % (Auto) 17.7 % (20.0-40.0) L 09/11/17 08:05 [place] % (Auto) 7.3 % (0.0-10.0) 09/11/17 08:05 Eos % (Auto) 1.5 % (0.0-4.0) 09/11/17 08:05 Baso % (Auto) 0.3 % (0.0-2.0) 09/11/17 08:05 Neut # 5.7 K/uL (1.8-7.0) 09/11/17 08:05 Lymph # 1.4 K/uL (1.0-4.3) 09/11/17 08:05 [place] # 0.6 K/uL (0.0-0.8) 09/11/17 08:05 Eos # 0.1 K/uL (0.0-0.7) 09/11/17 08:05 Baso # 0.0 K/uL (0.0-0.2) 09/11/17 08:05 Neutrophils % (Manual) 95 % (50-75) H 09/04/17 22:57 Lymphocytes % (Manual) 1 % (20-40) L 09/04/17 22:57 Monocytes % (Manual) 4 % (0-10) 09/04/17 22:57 Platelet Estimate Normal (NORMAL) 09/04/17 22:57 PT 34.7 SECONDS (9.7-12.2) H* 09/11/17 08:05 INR 2.9 09/11/17 08:05 APTT 47 SECONDS (21-34) H D 09/11/17 08:05 Puncture Site Rr 09/04/17 23:34 pCO2 34 mm/Hg (35-45) L 09/04/17 23:34 pO2 61 mm/Hg (80-100) L 09/04/17 23:34 HCO3 24.5 mmol/L (21-28) 09/04/17 23:34 ABG pH 7.44 (7.35-7.45) 09/04/17 23:34 ABG Total CO2 24.1 mmol/L (22-28) 09/04/17 23:34 ABG O2 Saturation 94.1 % (95-98) L 09/04/17 23:34 ABG Base Excess -0.4 mmol/L (-2.0-3.0) 09/04/17 23:34 ABG Hemoglobin 14.6 g/dL (11.7-17.4) 09/04/17 23:34 ABG Carboxyhemoglobin 1.0 % (0.5-1.5) 09/04/17 23:34 POC ABG HHb (Measured) 5.8 % (0.0-5.0) H 09/04/17 23:34 ABG Methemoglobin 0.9 % (0.0-3.0) 09/04/17 23:34 Rios Test Pos 09/04/17 23:34 Hgb O2 Saturation 92.3 % (95.0-98.0) L 09/04/17 23:34 Sodium 136 mmol/L (132-148) 09/11/17 08:05 Potassium 4.8 mmol/L (3.6-5.2) 09/11/17 08:05 Chloride 99 mmol/L (98-107) 09/11/17 08:05 Carbon Dioxide 29 mmol/L (22-30) 09/11/17 08:05 Anion Gap 13 (10-20) 09/11/17 08:05 BUN 19 mg/dL (7-17) H 09/11/17 08:05 Creatinine 0.8 mg/dL (0.7-1.2) 09/11/17 08:05 Est GFR ( Amer) > 60 09/11/17 08:05 Est GFR (Non-Af Amer) > 60 09/11/17 08:05 POC Glucose (mg/dL) 206 mg/dL (65-110) H 09/11/17 11:45 Random Glucose 127 mg/dL (65-105) H 09/11/17 08:05 Calcium 8.9 mg/dl (8.6-10.4) 09/11/17 08:05 Phosphorus 3.4 mg/dL (2.5-4.5) 09/11/17 08:05 Magnesium 2.0 mg/dL (1.6-2.3) 09/11/17 08:05 Total Bilirubin 0.8 mg/dL (0.2-1.3) 09/11/17 08:05 AST 19 U/L (14-36) 09/11/17 08:05 ALT 30 U/L (9-52) 09/11/17 08:05 Alkaline Phosphatase 62 U/L (38-126) 09/11/17 08:05 Troponin I 0.0180 ng/mL (0.00-0.120) 09/04/17 22:57 NT-Pro-B Natriuret Pep 611 pg/mL (0-900) 09/04/17 22:57 Total Protein 7.3 g/dL (6.3-8.3) 09/11/17 08:05 Albumin 3.9 g/dL (3.5-5.0) 09/11/17 08:05 Globulin 3.4 gm/dL (2.2-3.9) 09/11/17 08:05 Albumin/Globulin Ratio 1.2 (1.0-2.1) 09/11/17 08:05 Urine Color Yellow (YELLOW) 09/04/17 23:15 Urine Clarity Clear (Clear) 09/04/17 23:15 Urine pH 5.0 (5.0-8.0) 09/04/17 23:15 Ur Specific Ragan 1.020 (1.003-1.030) 09/04/17 23:15 Urine Protein 2+ mg/dL (NEGATIVE) H 09/04/17 23:15 Urine Glucose (UA) Normal mg/dL (Normal) 09/04/17 23:15 Urine Ketones Negative mg/dL (NEGATIVE) 09/04/17 23:15 Urine Blood 3+ (NEGATIVE) H 09/04/17 23:15 Urine Nitrate Negative (NEGATIVE) 09/04/17 23:15 Urine Bilirubin Negative (NEGATIVE) 09/04/17 23:15 Urine Urobilinogen Normal mg/dL (0.2-1.0) 09/04/17 23:15 Ur Leukocyte Esterase Neg Christo/uL (Negative) 09/04/17 23:15 Urine WBC (Auto) 1 /hpf (0-5) 09/04/17 23:15 Urine RBC (Auto) 24 /hpf (0-3) H 09/04/17 23:15 Ur Squamous Epith Cells 1 /hpf (0-5) 09/04/17 23:15 Urine Bacteria Rare (<OCC) 09/04/17 23:15 Influenza Typ A,B (EIA) Pos for influenza a (NEGATIVE) H 09/04/17 22:54 - Hospital Course Hospital Course: HPI: Patient is a 77 year old female with a past medical history of asthma, Afib , HTN, DM, antiphospholipid syndrome, PE w/IVC filter, who presents with weakness, fevers, and coughing. Patient reports the coughing started on Monday and occasionally produces yellow sputum. Weakness in the legs and fever began yesterday, for which she called out of work sick. Patient was then brought into the ED by her daughter, Luly, who is at bedside. Patient took Tylenol, which helped her symptoms slightly. Patient currently complains of fever, chills, weakness, parasternal and midline back pain when coughing, Patient denies dizziness, shortness of breath, abdominal pain, nausea, vomiting, diarrhea, constipation, and dysuria. PMD: none Dry End Tester: Dr. 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 In the ED, labs were drawn, imaging done, and medications were given ( duonebs, O2, IV fluids, Tylenol). Influenza A was positive, patient was started on Tamiflu on 09/05/17. Chest xray showed biapical pleural thickening w/upper lobar granulomatous changes; diffuse increased interstitial lung markings. Pulmonology consulted, patient's outpatient physician, Dr. Ordonez. Dr. Ordonez was not reached. Pulmonology, Dr. Bucio, was reconsulted. Patient was placed on droplet precautions. Duonebs, tamiflu, oxygen via nasal cannula, and IV fluids were continued. Sputum culture was negative. Home mediations for hypertension, asthma, and diabetes mellitus were restarted. Patient's history of afib was monitored throughout hospital stay. INR was monitored daily and Coumadin was given daily. Patient was seen and examined at bedside today in no acute distress. Patient is no longer short of breath and no longer wheezing. Patient's last dose of Tamiflu given on 09/10/17. Patient is stable for discharge to home. Patient must follow up with PMD and market consultant within 1 week of discharge. This is a brief summary of the hospital course. Please see EMR for more details. Discharge Exam - Additional Findings Additional findings: - Constitutional Appears: No Acute Distress - Head Exam Head Exam: ATRAUMATIC, NORMOCEPHALIC - Eye Exam Eye Exam: EOMI, Normal appearance, PERRL - ENT Exam ENT Exam: Mucous Membranes Moist - Respiratory Exam Respiratory Exam: Prolonged Expiratory Phase, NORMAL BREATHING PATTERN, Productive cough (white sputum). absent: Clear to Auscultation Bilateral, Respiratory Distress - Cardiovascular Exam Cardiovascular Exam: Irregular Rhythm, +S1, +S2 - GI/Abdominal Exam GI & Abdominal Exam: Normal Bowel Sounds, Soft. absent: Distended, Firm, Tenderness - Extremities Exam Extremities exam: Negative for: normal inspection (variscosites; chronic skin changes 2/2 venous stasis), tenderness - Neurological Exam Neurological exam: Alert, Oriented x3 - Psychiatric Exam Psychiatric exam: Normal Affect, Normal Mood - Skin Skin Exam: Dry, Intact, Warm Discharge Plan - Discharge Medications Prescriptions: Methylprednisolone [Medrol Dose Pack (21 tabs)] 4 mg PO ASDIR #21 mg Promethazine DM [Phenergan DM Syrup] 5 ml PO Q6H PRN #120 ml PRN Reason: Cough - Follow Up Plan Condition: GOOD Disposition: HOME/ ROUTINE Instructions: Promethazine (By mouth), Methylprednisolone (By mouth), Atrial Fibrillation (DC), Asthma (DC), Pulmonary Embolism (DC), Influenza (DC), COPD ( Chronic Obstructive Pulmonary Disease) (DC), Low Sodium Diet (DC), Hypertension (DC) Additional Instructions: Patient is stable for discharge to home. Patient must continue home medications and must start new medications as prescribed: 1. Phenergen DM syrup 5ml PO Q6hr PRN- take every 6 hours as needed for cough. 2. Medrol Dose Pack- take as directed. Patient should follow up with their PMD within 1-2 weeks of discharge. Patient should follow up with their market consultant within 1-2 weeks of discharge. If symptoms reoccur or worsen, patient should return to the ED. Referrals: Kervin Bucio MD [Staff Provider] - Harry Johnson Jr., MD [Medical Doctor] -
[2017-09-11 16:19] VITALS: TEMP 98
[2017-09-11 16:51] VITALS: BP 137/75; PULSE 75; O2SAT 95
--- NOTE | 2017-09-11 16:59 | CP.PCM.PN ---
Subjective - Date & Time of Evaluation Date of Evaluation: 09/11/17 Time of Evaluation: 10:00 - Subjective Subjective: the patient seen and examined Cough and shortness of breath better Afebrile No chest pain Stable from pulmonary standpoint Rescue inhaler Inhaled steroids Followup with PMD Objective - Vital Signs/Intake and Output Vital Signs (last 24 hours): Temp Pulse Resp BP Pulse Ox 98 F 75 20 137/75 95 09/11/17 16:00 09/11/17 16:00 09/11/17 16:00 09/11/17 16:00 09/11/17 16:00 Intake and Output: 09/11/17 09/11/17 06:59 18:59 Intake Total 500 600 Balance 500 600 - Medications Medications: Current Medications Acetaminophen (Tylenol 325mg Tab) 650 mg PO Q6 PRN PRN Reason: Fever >100.4 F Last Admin: 09/11/17 10:26 Dose: 650 mg Calcium/Vitamin D (Oyster Shell Calcium/Vitamin D 500 Mg-200 Iu) 1 tab PO DAILY [facility] Last Admin: 09/11/17 10:14 Dose: 1 tab Diltiazem HCl (Cardizem Cd) 120 mg PO DAILY [facility] Last Admin: 09/11/17 10:25 Dose: 120 mg Ergocalciferol (Drisdol 50,000 Intl Units Cap) 1 cap PO QWK [facility] Last Admin: 09/06/17 10:05 Dose: 1 cap Famotidine (Pepcid) 20 mg PO DAILY [facility] Last Admin: 09/11/17 10:14 Dose: 20 mg Glipizide (Glucotrol) 10 mg PO BID [facility] Last Admin: 09/11/17 10:13 Dose: 10 mg Insulin Human Regular (Novolin R) 0 unit SC ACHS [facility] PRN Reason: Protocol Last Admin: 09/11/17 16:31 Dose: Not Given Metoclopramide HCl (Reglan) 10 mg PO ACHS [facility] Last Admin: 09/11/17 16:39 Dose: 10 mg Mometasone Furoate (Asmanex Twisthaler 220 Mcg) 2 puff INH RBID [facility] Last Admin: 09/11/17 09:27 Dose: 2 puff Montelukast Sodium (Singulair) 10 mg PO HS [facility] Last Admin: 09/10/17 21:07 Dose: 10 mg Ondansetron HCl (Zofran Inj) 4 mg IVP Q6H PRN PRN Reason: Nausea/Vomiting Last Admin: 09/08/17 19:30 Dose: 4 mg Promethazine HCl/Dextromethorphan (Phenergan Dm Syrup) 5 ml PO Q6H PRN PRN Reason: Cough Last Admin: 09/10/17 21:09 Dose: 5 ml Sitagliptin Phosphate (Januvia) 100 mg PO DAILY [facility] Last Admin: 09/11/17 10:13 Dose: 100 mg - Labs Labs: 09/11/17 08:05 09/11/17 08:05 PT 34.7 SECONDS (9.7-12.2) H* 09/11/17 08:05 INR 2.9 09/11/17 08:05 APTT 47 SECONDS (21-34) H D 09/11/17 08:05 Assessment and Plan (1) Asthma Status: Acute (2) Hx pulmonary embolism Status: Acute (3) Influenza A Status: Acute
== END 2017-09-11 18:46 | disposition home or self-care (01) | DRG 153 ==
LOC: C.ER 19:28 → C.9E 09-05 03:28 → C.5S 09-05 16:23
PROVIDERS: ADMIT Internal Medicine; ATTEND Internal Medicine
DX: J11.1 Influenza due to unidentified influenza virus with other respiratory manifestations (principal); I11.0 Hypertensive heart disease with heart failure; I48.91 Unspecified atrial fibrillation; I50.9 Heart failure, unspecified; J44.1 Chronic obstructive pulmonary disease with (acute) exacerbation; E11.9 Type 2 diabetes mellitus without complications; H35.30 Unspecified macular degeneration; Z85.038 Personal history of other malignant neoplasm of large intestine; Z86.711 Personal history of pulmonary embolism; Z87.01 Personal history of pneumonia (recurrent)